=== PATIENT | male | born 1950 | race Caucasian/White ===

== ENCOUNTER 2016-10-28 17:55 | Inpatient (IN) | payer MEDICARE ==
--- NOTE | ~2016-10-28 | OP ---
Record Of Operation [facility] [address] [place]. [address] NAME: LUPILLO JIM : 52 STATUS : ADM IN [facility]#: [id number] AGE: 66 ADM/REG DATE : 10/28/16 MR#: [id number] REPORT SERV DATE: 11/02/16 DICTATED BY: HUSSANI CARDOZO DATE: 11/02/16 REPORT STATUS : Draft TRANSCRIBED BY: MODMartinez DATE: 11/02/16 DATE OF PROCEDURE: 11/02/2016 PROCEDURE PERFORMED: Endotracheal intubation. INDICATIONS: Acute hypoxic respiratory failure. DESCRIPTION OF PROCEDURE: After informed consent was obtained from the patient's at bedside, procedure was performed emergently at the patient's bedside on the floor. He was premedicated with 100 mg of propofol and 100 mg of succinylcholine, and using a laryngoscope, the vocal cords were visualized very well. A 7.5 endotracheal tube was introduced under direct vision. Tip was placed at 24 cm, and placement was confirmed by auscultation bilaterally and end-tidal CO2. The patient tolerated the procedure well. His saturations returned to the 94% to 96% post procedure. The patient will be placed on mechanical ventilation. A postprocedure chest x-ray will be obtained as well. /MARTITA Hussain Cardozo M.D. / [id number] CC: Trina Mckeon MD
--- NOTE | ~2016-10-28 | CN ---
Consultation Report [facility] [address] [place]. [address] NAME: LUPILLO JIM : 52 STATUS : ADM IN PAT#: [id number] AGE: 66 ADM/REG DATE : 10/28/16 MR#: [id number] REPORT SERV DATE: 10/30/16 DICTATED BY: DATE: REPORT STATUS : Draft TRANSCRIBED BY: MODL DATE: 10/29/16 NEUROLOGY CONSULTATION DATE OF CONSULTATION: 10/29/2016 REASON FOR CONSULT: Stroke. HISTORY OF PRESENT ILLNESS: This is a 66-year-old male, who presented to [facility] on 10/28/2016 as a transfer from [facility] secondary to stroke as well as internal carotid artery occlusion and cortical stenosis in the left ICA. The patient was noted to have duration of left-sided weakness as well as difficulty ambulating with the patient reports weakness is better. The patient otherwise was also noted to have severe dysphagia with the patient coughing with basically swallow. Also, the patient's family reports that the patient has had a supposedly modified barium swallow study at outside hospital that demonstrated the patient is able to tolerate pureed diet. The patient denies aspirin therapy at home and denies any other recent illness prior to the hospitalization. No recent history of dysphagia was otherwise noted. Also, the patient was noted to have stable symptoms since the hospitalization. At the time of my evaluation, patient's past medical history is significant for hypercholesterolemia, hypertension, COPD, psoriasis, hypothyroidism, history of throat cancer, and previous alcohol usage. The patient since the stroke was noted to have dysphagia, reportedly he was noted to have a modified barium swallow study at the outside hospital, but was noted to have severe coughing spells with attempts all to p.o. diet and swallowing at the hospital evaluation. HOME MEDICATIONS: Consist of levothyroxine, lisinopril, omeprazole as well as vitamin B12. In addition, the patient during the current hospital stay, was started on Lipitor 20 mg p.o. at bedtime as well as Plavix and heparin drip. SOCIAL HISTORY: The patient does have previous history of tobacco usage, quit 30 years ago. Previous alcohol usage, he quit 4 years ago. Denies illicit drug usage. FAMILY HISTORY: Significant for hypertension, cancer, myocardial infarction, stroke as well as lung cancer. REVIEW OF SYSTEMS: Negative except for those mentioned in the HPI. PHYSICAL EXAMINATION: VITAL SIGNS: Overnight, the patient was noted to have vital signs with T-max of 99.1, heart rate of 58 to 120, respirations of 18, and blood pressure of 136 to 177 over 58 to 81. GENERAL: The patient is well developed, well nourished, and in no acute distress. CARDIOVASCULAR: Regular rate and rhythm. No carotid bruits were otherwise auscultated. PULMONARY: On evaluation, the patient's pulmonary examination was clear to auscultation Consultation Report [place] [id number] [facility] [place]. [address] NAME: LUPILLO JIM : 52 STATUS : ADM IN [facility]#: [id number] AGE: 66 ADM/REG DATE : 10/28/16 MR#: [id number] REPORT SERV DATE: 10/30/16 DICTATED BY: DATE: REPORT STATUS : Draft TRANSCRIBED BY: MARTITA DATE: 10/29/16 bilaterally. Although the patient was noted to have severe coughing spells with attempted p.o. intake and swallowing. NEUROLOGICAL: The patient is alert and oriented to person, place, year, and month. Follows simple and 2-step commands. Intact attention span. Noted to have intact registration, mild difficulties with recall. Mild dysarthria was noted. No aphasia was appreciated. Cranial nerves 2 through 12, pupils equal, round, and reactive to light. Horizontal eye movement. The patient was noted to have mild restricted left worse eye movement, but otherwise intact horizontal eye movement to the right with the patient noted to have intact vertical eye movement. Intact blink to threat response bilaterally. The patient was noted to have intact sensation bilaterally. Denies sensory changes. Decreased nasolabial fold on the left with the left lower face weakness was noted. Tongue deviated to the right at time of evaluation. The patient demonstrated weakness in the left upper extremity as well as rigidity with the patient also noted to have 4/5 weakness in the left lower extremity. 5/5 right upper extremity, 5/5 right lower extremity strength at the time of evaluation. Reports symmetrical sensation bilaterally. Deep tendon reflex was 3+ in the left lower extremity and 3+ in the left upper extremity, 2+ in the right upper and right lower extremity at time of evaluation. Normal qafuna-ef-lgej examination without ataxia. The patient reports difficulty with gait as a result, gait evaluation was not performed. LABORATORY STUDIES: Demonstrated white blood cell count of 5.8, hemoglobin of 11.9, hematocrit of 35.5, platelet count of 234. Chemistry panel: Sodium 139, potassium 3.9, chloride 105, bicarb of 23, BUN of 15, creatinine 1.07, glucose of 100, calcium of 9.1, magnesium of 1.7. Cholesterol of 159, HDL of 40, LDL of 106, triglyceride of 69. The patient was noted to have serum troponin of less than 0.02 and TSH of 1.19. Hemoglobin A1c of 5.6. No neuro imaging was available at the time of the evaluation from our hospitalization; however, the patient was noted to have imaging study from outside hospital, in our PAC system that was reviewed. MRI study demonstrates subcortical periventricular white matter stroke that appear to be embolic in the right MCA distribution. No hemorrhage was otherwise noted. The patient's CT scan of the brain performed at outside hospital was also reviewed and no hemorrhage was seen. IMPRESSION: Cerebrovascular accident with the right internal carotid artery complete occlusion and the left internal carotid artery with 90% stenosis with the patient noted to have severe coughing with the swallowing. We will recommend speech therapy to re-evaluate with modified barium swallow study. We will keep the patient n.p.o. until modified barium swallow study. The patient is to be kept n.p.o. Once the patient is able to tolerate p.o., we will advance aspirin as well as Plavix, and will have the patient started on atorvastatin 80 mg p.o. at bedtime. Meanwhile we are recommending PT/OT to evaluate and treat the patient. RECOMMENDATION: 1. Aspirin and Plavix when the patient passed the swallow study. 2. Speech therapy for modified barium swallow study. 3. PT/OT. 4. Once the patient is able to tolerate p.o., we will change Lipitor to 80 mg p.o. at Consultation Report [place] [address] [place]. [address] NAME: LUPILLO JIM : 52 STATUS : ADM IN [facility]#: [id number] AGE: 66 ADM/REG DATE : 10/28/16 MR#: [id number] REPORT SERV DATE: 10/30/16 DICTATED BY: DATE: REPORT STATUS : Draft TRANSCRIBED BY: MODL DATE: 10/29/16 bedtime. [facility]/MARTITA Jairo Berumen MD / [id number] CC: Trina Mckeon MD
--- NOTE | ~2016-10-28 | DS ---
Discharge Summary [facility] [address] [place]. 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 Elsa Frey left off. Dr. Frey dictated the hospital course through 11/07/2016. On 11/07/2016, there had been no events during the night. The patient was still intubated. Echocardiogram had shown ejection fraction of 50% to 55%. He has mild diastolic dysfunction. The following day, the patient did not tolerate weaning trials. Chest x-ray was stable. Heparin had been stopped. Plavix and aspirin were continued. The patient did have some left hand and foot weakness, probably related to CVA. Heparin had been stopped due to hemoptysis. Aspirin and Plavix were going to be continued. On 11/09/2016, he had not done well with weaning trials. He had had a CT scan of the chest without contrast performed. He remained critically ill. It was felt that he would need an ENT consult for trachea evaluation. On the , he remained on the ventilator. He was seen by Dr. Michael Sherman regarding tracheostomy. The patient had been transferred from [facility] secondary to right hemorrhagic stroke as well as right complete carotid stenosis and left internal carotid artery stenosis as well as right calf vertebral occlusion despite multiple attempts to wean from the ventilator, which had failed. He had been asked to see the patient regarding tracheostomy for long-term ventilator management. The patient has a very high risk for general anesthesia for tracheostomy given his current vascular findings. This would be discussed with the medical team taking care of him and also with his power of finance attorney and family before considering tracheostomy given the high risk. Daily vent weaning trials would be continued. Dr. Sherman was not comfortable with trach under general anesthesia until left carotid stenosis had been addressed. The patient was alert, supportive care continued. On 11/14/2016, the patient had been extubated. He was sitting up in bed. He was not able to verbally speak, but could respond with a nod. He was evaluated by Occupational and Physical Therapy. Tube feedings were at goal. The patient does have Enterobacter pneumonia. He could follow verbal commands. He was not a vascular surgery candidate at this time. Discharge planning was performed. Nebulizer treatments were provided. On the , he was moved back to the CCU with fever and tachycardia. Full cultures were going to be obtained. He was placed on Vapotherm. TSH was going to be checked. Synthroid was continued. The patient had a hypoxic episode. Chest x-ray showed pulmonary venous hypertension. On the , the patient was speaking. He said his pain level was 5/10. Discharge planning continued. Vancomycin continued. He was evaluated by Physical Therapy. On 11/25/2016, blood cultures were negative. Tube feedings were continued. The next day, he was resting comfortably. His affect was flat. Chest x-ray showed improvement. Magnesium citrate was given for constipation. The patient does have a 90% left internal carotid artery stenosis. Plavix, statin, and aspirin were continued. On 11/27/2016, he did have a cough. He denied any pain or shortness of breath. He did have a small bowel movement. Blood cultures remained negative. Discharge instructions were given. Due to his improved and stable condition, he was discharged to [facility] with the above-stated instructions. Information collected by: Sunshine Curtis Discharge Summary [address] [address] NAME: LUPILLO JIM : 52 STATUS : DIS IN PAT#: [id number] AGE: 66 ADM/REG DATE : 10/28/16 MR#: [id number] REPORT SERV DATE: 12/12/16 DICTATED BY: SEBASTIÁN VIZCARRA DATE: 12/11/16 REPORT STATUS : Draft TRANSCRIBED BY: MARTITA DATE: 12/11/16 I submit the above information as my discharge summary. WANG/MARTITA Sebastián Vizcarra M.D. / [id number] CC: Trina Mckeon MD Jack Greer, M.D. [facility]
--- NOTE | ~2016-10-28 | IDS ---
Interim Discharge Summary [facility] [address] [place]. [address] NAME: LUPILLO JIM : 52 STATUS : ADM IN [facility]#: [id number] AGE: 66 ADM/REG DATE : 10/28/16 MR#: [id number] REPORT SERV DATE: 11/07/16 DICTATED BY: STEPHANIE FREY DATE: 11/07/16 REPORT STATUS : Draft TRANSCRIBED BY: MODMartinez DATE: 11/07/16 ADMISSION DATE: 10/28/2016 DISCHARGE DATE: Date of transfer to the intensive care unit is 11/02/2016. This is a 66-year-old patient, who was initially admitted to [facility] in [place] after he presented there with facial droop, left arm weakness, and left leg weakness. The patient was evaluated there and was found to have mild brain atrophy and mild hypodense periventricular white matter disease, otherwise a CT scan of the head was unremarkable. The patient then went on to have a MRI of the brain on the 27 of October which showed multiple acute infarcts involving the periventricular white matter on the right side and additional scattered focal infarct involving the cortex mostly the parietal lobe. He also had an MR angiography that showed right internal carotid artery, total occlusion of the right internal carotid artery and 90% stenosis or greater involving the right the left internal carotid artery with right vertebral artery also include occluded. Because of these findings, Dr. Sebastián Vizcarra was asked to accept the patient in transfer for further evaluation and possible stenting of the carotids. The patient was then transferred to this facility on the 28 of October and was seen by the Hospitalist Service. The plan was to have taken the patient for stenting of the carotids on the 03 of November, however on the 02 of November, the patient got into respiratory distress on the floor, possibly aspirated, became hypoxic, and then was intubated and subsequently transferred to the medical intensive care unit requiring mechanical ventilation. Since that time, the patient on grew out Enterobacter cloacae and by antibiotics were changed to cefepime. The patient remains intubated has had a difficult time weaning secondary to copious secretions and so currently he remains a full code and he is on heparin as per recommendations of Vascular Surgery and Plavix and aspirin as per Neurology. He is hemodynamically stable. In reviewing the records from [facility], the patient apparently has had difficulty with dysphasia for quite some time before his admission to [facility] and has a history of throat cancer and is status post chemo radiation in 2012. In fact, the patient has previously had a PEG tube and currently has a PEG tube that I believe was placed at [facility]. The patient is on tube feedings and is tolerating those well. The patient has a history of hypothyroidism and is on Synthroid with a TSH that is within normal limits. The patient has a remote history of smoking and carries a diagnosis of COPD and currently he is on bronchodilator protocol. As far as decision making is concerned, I believe it is the patient's niece that is the closest relative, there is an ex- that comes to see him every day and in fact, takes care of him at home. I have spoken to her on several occasions and apparently the patient is seen at the outpatient [facility] and there is some history he has had of some lung issues a few years ago, possibly related to a viral illness but further Interim Discharge Summary [address] [place]. [address] NAME: LUPILLO JIM : 52 STATUS : ADM IN PAT#: [id number] AGE: 66 ADM/REG DATE : 10/28/16 MR#: [id number] REPORT SERV DATE: 11/07/16 DICTATED BY: STEPHANIE FREY DATE: 11/07/16 REPORT STATUS : Draft TRANSCRIBED BY: MARTITA DATE: 11/07/16 details of that are unknown at this time and we have requested records from the [place]. I am considering possibly doing a high-resolution CT scan or just a plain CT scan of the chest without contrast to further evaluate his lungs and see if there is any other reason that the patient is not weaning from the ventilator. The patient had an echocardiogram done here since I could not find any records of one being done at [facility]. Ejection fraction was about 50 to 55% with mild diastolic dysfunction, normal RV and systolic function and no valvular disease. Normal pulmonary pressures. Other previous medical history is one of hypertension, hyperlipidemia, psoriasis, rosacea, there is a previous history of alcohol abuse. The patient is on B12, bronchodilator protocol, and Lipitor. He remains hemodynamically stable. The plan will be to continue efforts at weaning and possibly extubating the patient and then once he has stabilized, he can be re-evaluated by Dr. Vizcarra for any further intervention regarding his carotid artery stenosis. /MODL Stephanie Frey M.D. / [id number] CC: Trina Mckeon MD
--- NOTE | ~2016-10-28 | CN ---
Consultation Report [facility] [address] [place]. [address] NAME: LUPILLO JIM : 52 STATUS : ADM IN [facility]#: [id number] AGE: 66 ADM/REG DATE : 10/28/16 MR#: [id number] REPORT SERV DATE: 10/29/16 DICTATED BY: SARA MACHADO DATE: 10/28/16 REPORT STATUS : Draft TRANSCRIBED BY: MODL DATE: 10/28/16 CONSULTATION DATE OF CONSULTATION: 10/28/2016 REASON FOR CONSULTATION: Consulted for CVA. IDENTIFYING DATA: 1. PCP, the patient receives primary care at the [facility] in [place]. 2. Previous oncologist Dr. Tan. HISTORY OF PRESENT ILLNESS: This is a pleasant 66-year-old, male, with a history of hypertension, COPD, high cholesterol, previous throat cancer status post radiation and chemotherapy, hypothyroidism, dysphagia, and GERD who presents to us after being transferred from a previous facility noted as [facility]. He presented to their facility with a chief complaint of left-sided weakness and unsteady gait. He says he had been unable to walk since 9 o'clock in the morning, and he had weakness for a few day specifically for the past few weeks. He states he has had left arm weakness and left leg weakness to the point where he could not walk. He denied any kind of cervical, neck, or lumbar back problems. He also stated that he had a hard time eating, that he felt like he had an increased problem with dysphagia but he states he did have some dysphagia at baseline after having chemo and radiation status post throat cancer in 2011. He is transferred to our facility here at [facility] and admitted per Dr. Sebastián Vizcarra with CVA and carotid artery stenosis. We are consulted to help in medical management while the patient is inpatient. The patient states he has not had a stroke in the past. He quit smoking 30 years ago. He does not have history of any SC or sleep apnea. Upon presentation to their facility, he denies that he had any headache, vertigo, hearing changes, visual changes, bladder or bowel changes, seizures, any kind of syncope. He denies any infectious symptoms of fever, chest pain, shortness of breath, or any abdominal pain. The patient's history was obtained through careful interview with the patient and his coupled with review of senior environmental consultant notes and old medical records noted from [facility]. PAST MEDICAL HISTORY: 1. High cholesterol. 2. Hypertension. 3. COPD. 4. Psoriasis. 5. Hypothyroidism. 6. PTSD. 7. Throat cancer. 8. Rosacea. 9. Previous alcohol abuse. 10.Acute constipation. Consultation Report [facility] [id number] [place]. [address] NAME: LUPILLO JIM : 52 STATUS : ADM IN [facility]#: [id number] AGE: 66 ADM/REG DATE : 10/28/16 MR#: [id number] REPORT SERV DATE: 10/29/16 DICTATED BY: SARA MACHADO DATE: 10/28/16 REPORT STATUS : Draft TRANSCRIBED BY: MARTITA DATE: 10/28/16 11.Dysphagia. 12.GERD. HOME MEDICATION: 1. Levothyroxine 0.1 mg p.o. daily. 2. Lisinopril 40 mg p.o. daily. 3. Omeprazole 20 mg of oral delayed release capsules 2 caps p.o. daily. 4. Cyanocobalamin 500 mcg tablet 1000 mcg p.o. daily. ALLERGIES: ARE TO HYDROCHLOROTHIAZIDE AND MORPHINE. SOCIAL HISTORY: The patient is . He is remarried for 5 years and was from his present and originally in 1985. He lives in a single-level home. Previous smoker but quit greater than 30 years ago. Previous alcohol use, he quit 4 years ago. He has no children. FAMILY HISTORY: 1. Family is positive for cancer and hypertension. 2. Mother had hypertension, SC, and a CVA. 3. Father had cancer, hypertension, and an SC. 4. One sister had lung cancer and is , had a total of 3 sisters. Others alive and well. 5. He has one brother. SURGICAL HISTORY: 1. Tonsillectomy as a child. 2. Left chest Port-A-Cath. 3. Throat cancer with chemo and radiation in 2011. 4. PEG 2012 with removal in 2012. 5. The patient relates right lung collapsed approximately 30 years ago. 6. Colonoscopy previously is scheduled for next week in [place]. REVIEW OF SYSTEMS: Negative other than what is in HPI. The patient complains of no shortness of breath. No nausea, vomiting. No chest pain. No fever. No diarrhea. He has no agitation. He is alert and oriented. He does display weakness of the left arm and leg and slight facial droop. Speech is otherwise clear. PHYSICAL EXAMINATION: VITAL SIGNS: From today; blood pressure 99/58, respiratory rate 16, temperature 97.9, heart rate 70, O2 saturation 95% on room air. GENERAL: This is a 66-year-old, male, who is resting in bed in no acute distress. NEURO: His head is atraumatic. He is normocephalic. He is alert and oriented x3. His mood is pleasant and appropriate. He does display weakness of the left arm and leg and specifically, he says in his left fingers. He displays slight facial droop. Speech is Consultation Report [facility] [id number] [facility] [place]. [address] NAME: LUPILLO JIM : 52 STATUS : ADM IN [facility]#: [id number] AGE: 66 ADM/REG DATE : 10/28/16 MR#: [id number] REPORT SERV DATE: 10/29/16 DICTATED BY: SARA MACHADO DATE: 10/28/16 REPORT STATUS : Draft TRANSCRIBED BY: MARTITA DATE: 10/28/16 otherwise clear. NECK: Supple. Trachea is midline. No JVD noted. No obvious thyromegaly or lymphadenopathy. EENT: His sclerae are nonicteric. His pupils are equal and reactive to light. His nares are patent. His mucous membranes are moist. His tongue is midline. He is able to stick it out appropriately to command. His soft palate rises with phonation. He does not display any nystagmus. CHEST: No pain with palpation. LUNGS: Clear to auscultation bilaterally. He has normal respiratory effort. No increased work of breathing with conversation. CARDIOVASCULAR: S1, S2. No obvious murmurs, rubs, or gallops. He is on telemetry and displays a sinus rhythm with a rate of 78. ABDOMEN: Soft, nontender, with bowel sounds active. No palpable organomegaly. Last bowel movement was 10/28/2016. EXTREMITIES: No edema. Normal distal pulses. No calf tenderness. SKIN: Warm and dry. No unusual rashes or skin lesions. Normal color turgor. PSYCH: The patient is pleasant and cooperative. He states he is tired but his mood is appropriate. LABORATORY DATA: Actually from 10/28/2016 at [facility]; sodium 137, potassium 4.0, chloride 104, BUN 16, creatinine 1.11, GFR 69, glucose 86, calcium 9.2, magnesium 1.7. Phosphorus 3.3, ALT 10, AST 17, total bilirubin 0.8, white blood cell 5.9, hemoglobin 12.0, hematocrit 36.2, platelets are 210. He had MRI of the brain on 10/27/2016 which displayed a subacute right hemispheric infarct. He also had MRA of the head and neck on 10/27/2016 that displayed occluded right ICA 90%, left ICA, and an occluded right vertebral artery. ASSESSMENT AND PLAN: 1. This gentleman is transferred from [facility] with a right hemorrhagic ischemic CVA with occluded right ICA, we are aware. He will be seen by Neurology in the morning. He is admitted per Dr. Vizcarra. He will be n.p.o. for a.m. testing for problems with dysphagia to initiate speech evaluation. Dr. Vizcarra has placed him on a heparin drip, and he is on Plavix daily. The patient is to have a bilateral carotid ultrasound in the a.m. We will have Neuro checks q.2 hours x4, then q.4 hours. He will be on fall precautions. He will be placed on telemetry. We will obtain an EKG. 2. Hypertension. We are aware. He is normally on lisinopril at home which will be on hold. His blood pressure presently is only 99/58. Because of the CVA, he will be on permissive hypertension, and we will not initiate antihypertensives at this time. 3. Dysphagia. This patient does have a history of throat cancer with radiation and chemotherapy in the past. Aware. He will remain n.p.o. for now. He was previously seen by [facility], [place], and he will need to be re-evaluated post a.m. testing by Speech and for swallowing. His states that he has been on a diet with thickened liquids at the previous facility. 4. Hypothyroidism. Aware. The patient is normally on Synthroid at home. We will Consultation Report [facility] [address] [facility] [address] NAME: LUPILLO JIM : 52 STATUS : ADM IN [facility]#: [id number] AGE: 66 ADM/REG DATE : 10/28/16 MR#: [id number] REPORT SERV DATE: 10/29/16 DICTATED BY: SARA MACHADO DATE: 10/28/16 REPORT STATUS : Draft TRANSCRIBED BY: MARTITA DATE: 10/28/16 continue Synthroid here but he may need an IV dose if he remains n.p.o., that is to be evaluated. We will check a TSH in the morning. 5. Chronic obstructive pulmonary disease. Aware. The patient was a previous smoker, 30 years ago, now quit. He is not on any medications at home. No O2 at home. We will have O2 p.r.n. if needed to keep the sats 92% or greater. 6. Gastroesophageal reflux disease. Aware. The patient is on omeprazole p.o. daily at home. We will place him on Protonix 40 mg IV daily since he has been held n.p.o. 7. Hypercholesterolemia. Aware. He states he has been on cholesterol medicine at home, and he does not know what that is. He was placed on Lipitor daily at [facility], and we will continue that as daily pending his n.p.o. status. The hospitalist group would like to thank you for this consultation. We will continue to follow with you and the patient and please let us know if we can be of any further assistance. MAYNOR Sara Machado NP / [id number] CC: Sebastián Vizcarra M.D.
--- NOTE | ~2016-10-28 | CN ---
Consultation Report [address]. [address] NAME: LUPILLO EDWARDS : 52 STATUS : ADM IN PAT#: [id number] AGE: 66 ADM/REG DATE : 10/28/16 MR#: [id number] REPORT SERV DATE: 11/12/16 DICTATED BY: VARGHESE STARKS DATE: 11/11/16 REPORT STATUS : Draft TRANSCRIBED BY: MODL DATE: 11/11/16 CONSULTATION DATE OF CONSULTATION: 11/11/2016 REASON FOR CONSULTATION: Tracheostomy. HISTORY OF PRESENT ILLNESS: Mr. Edwards is a 66-year-old gentleman admitted on 10/28/2016 transferred from [facility] secondary to right hemorrhagic stroke as well as right complete carotid stenosis and left internal carotid artery stenosis as well as right calf vertebral occlusion despite multiple attempts to wean from ventilator, which had failed. I had been called to see the patient regarding tracheostomy for long-term ventilator management. There was no family to discuss his case with them at the present time. PAST MEDICAL HISTORY: Hypercholesterolemia, hypertension, COPD, psoriasis, hypothyroidism, history of throat cancer, previous alcohol abuse. SOCIAL HISTORY: Tobacco use, quit 30 years ago. Previous alcohol use, quit four years ago. No illicit drug use. FAMILY HISTORY: Hypertension and cancer and myocardial infarction and stroke as well as lung cancer. PHYSICAL EXAMINATION: GENERAL: The patient was intubated and sedated. HEENT: Both ears are clear. Nose is clear. Oral cavity and oropharynx shows an endotracheal tube in place. NECK: Supple. No palpable masses. No thyromegaly. IMPRESSION: 1. Right cerebrovascular accident. 2. Left internal carotid of 90% stenosis. 3. Respiratory failure. 4. Dysphagia. RECOMMENDATIONS: The patient has very high risk for general anesthesia for tracheostomy given his current vascular findings. We will discuss with the team taking care of him and also with his Power of National Sales Manager and family before considering tracheostomy given its high risk. Thanks for allowing us to see the patient. Consultation Report [address] [place]. [address] NAME: LUPILLO EDWARDS : 52 STATUS : ADM IN PAT#: [id number] AGE: 66 ADM/REG DATE : 10/28/16 MR#: [id number] REPORT SERV DATE: 11/12/16 DICTATED BY: VARGHESE STARKS DATE: 11/11/16 REPORT STATUS : Draft TRANSCRIBED BY: DENNYL DATE: 11/11/16 GIL/MARTITA Varghese Starks M.D. / [id number] CC: Trina Mckeon MD
[~2016-10-28 17:55] MED LIST: CAT1 PO; DORYX150 MG PO; HYDROCHLOROT12.5 MG PO; PRIN20 PO; ZOCOR20 PO
[2016-10-28] MEDS ORDERED: LISINOPRIL40 MG PO (18:52)
[2016-10-28] MEDS ORDERED: PRILO PO (18:52)
[2016-10-28] MEDS ORDERED: B12250T PO (18:53)
[2016-10-28] MEDS ORDERED: LEVOTHYROXIN100 MCG PO (18:54)
[2016-10-28] MEDS ORDERED: T PO (19:39)
[2016-10-28] MEDS ORDERED: ASAB PO (19:40)
[2016-10-28] MEDS ORDERED: LIPITOR20 PO (19:40)
[2016-10-28] MEDS ORDERED: PLAVIX PO (19:41)
[2016-10-28] MEDS ORDERED: CYANO1000T PO (19:42)
[2016-10-28] MEDS ORDERED: LOVENOX SC (19:50)
[2016-10-28] MEDS ORDERED: PROTONIXIV IV (19:53)
[2016-10-28 21:44] LABS: INTERNATIONAL NORMAL RATI 1.1 UNITS (-); PROTIME (NOT ORD) 14.2 SEC (12.0-14.5)
[2016-10-29 05:45] LABS: BASOPHILS 0.3 %; BASOPHILS ABSOLUTE 0.02 10/3/uL (0.0-0.16); EOSINOPHILS 5.9 %; EOSINOPHILS ABSOLUTE 0.34 10/3/uL (0.0-0.53); IMMATURE GRANULOCYTES 0.2 %; IMMATURE GRANULOCYTES ABSOLUTE 0.01 10/3/uL (0.0-0.11); LYMPHOCYTES 25.6 %; LYMPHOCYTES ABSOLUTE 1.48 10/3/uL (0.67-4.30); MEAN CORPUS HGB CONC 33.5 g/dL (32.0-36.0); MEAN CORPUSCULAR HEMOGLOB 30.1 pg (26.0-34.0); MEAN PLATELET VOLUME 9.7 fL (9.2-13.0); MONOCYTES 11.4 %; MONOCYTES ABSOLUTE 0.66 10/3/uL (0.21-1.20); NEUTROPHILS 56.6 %; NEUTROPHILS ABSOLUTE 3.28 10/3/uL (2.02-8.40); PLATELET COUNT 234 10/3/uL (150-400); RBC DISTRIBUTION WIDTH 12.8 % (12.0-16.0); RED CELL COUNT 3.96 10/6/uL (4.7-6.1); WHITE BLOOD CELLS 5.8 10/3/uL (4.5-10.5)
[2016-10-29 05:46] LABS: INTERNATIONAL NORMAL RATI 1.1 UNITS (-); PROTIME (NOT ORD) 14.4 SEC (12.0-14.5)
[2016-10-29 05:49] LABS: HEMATOCRIT 35.5 % (40.0-51.0); HEMOGLOBIN 11.9 g/dL (13.6-17.8); MANUAL DIFF NO %; MEAN CORPUSCULAR VOLUME 89.6 fL (80-100)
[2016-10-29 06:05] LABS: A/G RATIO 1.1 (0.7-1.9); ALBUMIN 3.8 G/DL (3.5-5.0); ALKALINE PHOSPHATASE 50 U/L (45-117); BUN (BLOOD UREA NITROGEN) 15 MG/DL (6-23); CALCIUM, SERUM 9.1 MG/DL (8.5-10.4); CHLORIDE, SERUM 105 MMOL/L (96-112); CHOLESTEROL 159 MG/DL (< 200); CO2 (CARBON DIOXIDE) 23 MMOL/L (24-34); CREATININE 1.07 MG/DL (0.70-1.30); GFR AFRICAN AMERICAN 84 ML/MIN (>=60); GFR NON AFRICAN AMERICAN 72 ML/MIN (>=60); GLOBULIN 3.4 G/DL (2.5-4.1); GLUCOSE, SERUM 100 MG/DL (60-99); HDL CHOLESTEROL 40 MG/DL (> 39); LDL CHOLESTEROL 106 MG/DL (< 130); NON-HDL CHOLESTEROL 119 MG/DL (< 160); POTASSIUM, SERUM 3.9 MMOL/L (3.5-5.3); SGOT(AST) 17 U/L (5-40); SGPT(ALT) 18 U/L (5-65); SODIUM, SERUM 139 MMOL/L (135-148); TOTAL BILIRUBIN 0.7 MG/DL (0-1.2); TOTAL PROTEIN 7.2 G/DL (6.0-8.5); TRIGLYCERIDE 69 MG/DL (< 150); TROPONIN I <0.02 NG/ML (<0.05)
[2016-10-30 06:47] LABS: BASOPHILS 0.5 %; BASOPHILS ABSOLUTE 0.03 10/3/uL (0.0-0.16); EOSINOPHILS 6.1 %; EOSINOPHILS ABSOLUTE 0.37 10/3/uL (0.0-0.53); HEMOGLOBIN 12.1 g/dL (13.6-17.8); IMMATURE GRANULOCYTES 0.2 %; IMMATURE GRANULOCYTES ABSOLUTE 0.01 10/3/uL (0.0-0.11); LYMPHOCYTES 23.5 %; LYMPHOCYTES ABSOLUTE 1.43 10/3/uL (0.67-4.30); MEAN CORPUS HGB CONC 33.6 g/dL (32.0-36.0); MEAN CORPUSCULAR HEMOGLOB 30.1 pg (26.0-34.0); MEAN CORPUSCULAR VOLUME 89.6 fL (80-100); MEAN PLATELET VOLUME 9.7 fL (9.2-13.0); MONOCYTES 9.2 %; MONOCYTES ABSOLUTE 0.56 10/3/uL (0.21-1.20); NEUTROPHILS 60.5 %; NEUTROPHILS ABSOLUTE 3.68 10/3/uL (2.02-8.40); PLATELET COUNT 223 10/3/uL (150-400); RBC DISTRIBUTION WIDTH 12.9 % (12.0-16.0); RED CELL COUNT 4.02 10/6/uL (4.7-6.1); WHITE BLOOD CELLS 6.1 10/3/uL (4.5-10.5)
[2016-10-30 06:55] LABS: MANUAL DIFF NO %
[2016-10-30 08:09] LABS: ALBUMIN 3.7 G/DL (3.5-5.0); ALKALINE PHOSPHATASE 51 U/L (45-117); BUN (BLOOD UREA NITROGEN) 12 MG/DL (6-23); CALCIUM, SERUM 8.8 MG/DL (8.5-10.4); CHLORIDE, SERUM 105 MMOL/L (96-112); CO2 (CARBON DIOXIDE) 22 MMOL/L (24-34); CREATININE 1.15 MG/DL (0.70-1.30); GFR AFRICAN AMERICAN 77 ML/MIN (>=60); GFR NON AFRICAN AMERICAN 66 ML/MIN (>=60); GLOBULIN 3.6 G/DL (2.5-4.1); PHOSPHORUS, SERUM 3.5 MG/DL (2.5-4.5); POTASSIUM, SERUM 3.8 MMOL/L (3.5-5.3); SGOT(AST) 17 U/L (5-40); SGPT(ALT) 20 U/L (5-65); SODIUM, SERUM 141 MMOL/L (135-148); TOTAL BILIRUBIN 0.4 MG/DL (0-1.2); TOTAL PROTEIN 7.3 G/DL (6.0-8.5); TROPONIN I <0.02 NG/ML (<0.05)
[2016-10-30 08:13] LABS: GLUCOSE, SERUM 125 MG/DL (60-99)
[2016-10-31 02:08] LABS: BASOPHILS 0.5 %; BASOPHILS ABSOLUTE 0.03 10/3/uL (0.0-0.16); EOSINOPHILS ABSOLUTE 0.33 10/3/uL (0.0-0.53); HEMATOCRIT 35.7 % (40.0-51.0); HEMOGLOBIN 11.9 g/dL (13.6-17.8); IMMATURE GRANULOCYTES 0.2 %; IMMATURE GRANULOCYTES ABSOLUTE 0.01 10/3/uL (0.0-0.11); LYMPHOCYTES 21.3 %; LYMPHOCYTES ABSOLUTE 1.18 10/3/uL (0.67-4.30); MEAN CORPUS HGB CONC 33.3 g/dL (32.0-36.0); MEAN CORPUSCULAR HEMOGLOB 29.6 pg (26.0-34.0); MEAN CORPUSCULAR VOLUME 88.8 fL (80-100); MEAN PLATELET VOLUME 9.6 fL (9.2-13.0); MONOCYTES 10.1 %; MONOCYTES ABSOLUTE 0.56 10/3/uL (0.21-1.20); NEUTROPHILS 61.9 %; NEUTROPHILS ABSOLUTE 3.42 10/3/uL (2.02-8.40); PLATELET COUNT 216 10/3/uL (150-400); RED CELL COUNT 4.02 10/6/uL (4.7-6.1); WHITE BLOOD CELLS 5.5 10/3/uL (4.5-10.5)
[2016-10-31 02:14] LABS: MANUAL DIFF NO %
[2016-10-31 02:26] LABS: A/G RATIO 1.1 (0.7-1.9); ALBUMIN 3.7 G/DL (3.5-5.0); ALKALINE PHOSPHATASE 54 U/L (45-117); BUN (BLOOD UREA NITROGEN) 10 MG/DL (6-23); CALCIUM, SERUM 8.8 MG/DL (8.5-10.4); CHLORIDE, SERUM 105 MMOL/L (96-112); CO2 (CARBON DIOXIDE) 23 MMOL/L (24-34); CREATININE 1.21 MG/DL (0.70-1.30); GFR AFRICAN AMERICAN 72 ML/MIN (>=60); GFR NON AFRICAN AMERICAN 62 ML/MIN (>=60); GLOBULIN 3.5 G/DL (2.5-4.1); GLUCOSE, SERUM 116 MG/DL (60-99); PHOSPHORUS, SERUM 3.7 MG/DL (2.5-4.5); POTASSIUM, SERUM 3.8 MMOL/L (3.5-5.3); SGOT(AST) 23 U/L (5-40); SGPT(ALT) 20 U/L (5-65); SODIUM, SERUM 141 MMOL/L (135-148); TOTAL BILIRUBIN 0.6 MG/DL (0-1.2); TOTAL PROTEIN 7.2 G/DL (6.0-8.5)
[2016-11-01 04:59] LABS: BASOPHILS 0.1 %; BASOPHILS ABSOLUTE 0.01 10/3/uL (0.0-0.16); EOSINOPHILS 0 %; HEMATOCRIT 35.4 % (40.0-51.0); HEMOGLOBIN 11.8 g/dL (13.6-17.8); IMMATURE GRANULOCYTES 0.1 %; IMMATURE GRANULOCYTES ABSOLUTE 0.01 10/3/uL (0.0-0.11); LYMPHOCYTES 14.1 %; LYMPHOCYTES ABSOLUTE 0.97 10/3/uL (0.67-4.30); MEAN CORPUS HGB CONC 33.3 g/dL (32.0-36.0); MEAN CORPUSCULAR HEMOGLOB 29.4 pg (26.0-34.0); MEAN CORPUSCULAR VOLUME 88.3 fL (80-100); MEAN PLATELET VOLUME 9.6 fL (9.2-13.0); MONOCYTES 3.6 %; MONOCYTES ABSOLUTE 0.25 10/3/uL (0.21-1.20); NEUTROPHILS 82.1 %; NEUTROPHILS ABSOLUTE 5.62 10/3/uL (2.02-8.40); PLATELET COUNT 233 10/3/uL (150-400); RBC DISTRIBUTION WIDTH 12.9 % (12.0-16.0); RED CELL COUNT 4.01 10/6/uL (4.7-6.1); WHITE BLOOD CELLS 6.9 10/3/uL (4.5-10.5)
[2016-11-01 05:03] LABS: MANUAL DIFF NO %
[2016-11-01 05:05] LABS: INTERNATIONAL NORMAL RATI 1.2 UNITS (-); PROTIME (NOT ORD) 14.6 SEC (12.0-14.5)
[2016-11-01 05:20] LABS: ALBUMIN 3.6 G/DL (3.5-5.0); CALCIUM, SERUM 9.2 MG/DL (8.5-10.4); CHLORIDE, SERUM 103 MMOL/L (96-112); CO2 (CARBON DIOXIDE) 22 MMOL/L (24-34); CREATININE 1.17 MG/DL (0.70-1.30); GFR AFRICAN AMERICAN 75 ML/MIN (>=60); GFR NON AFRICAN AMERICAN 65 ML/MIN (>=60); GLUCOSE, SERUM 118 MG/DL (60-99); PHOSPHORUS, SERUM 4.6 MG/DL (2.5-4.5); POTASSIUM, SERUM 4.2 MMOL/L (3.5-5.3); SODIUM, SERUM 139 MMOL/L (135-148)
[2016-11-01 05:21] LABS: BUN (BLOOD UREA NITROGEN) 15 MG/DL (6-23)
[2016-11-01 05:23] LABS: PARTIAL THROMBO TIME 85.5 SEC (22.5-37.2)
[2016-11-02 01:55] LABS: BE (BASE EXCESS) -1.7 MEQ/L (0 +/- 2.5); CARBOXYHEMOGLOBIN 0.5 % (0-3); HCO3 (ACTUAL BICARBONATE) 23.2 MEQ/L (23-27); INSTRUMENT SERIAL # 8083; PCO2 (CO2 TENSION) 40 MMHG (35-45); PO2 (O2 TENSION) 53 MMHG (79-93); pH 7.38 (7.37-7.43)
[2016-11-02 01:56] LABS: ALLENS TEST Pos; DEVICE NC; HEMOBLOGIN CONTENT 13.2 G/DL (14-18); METHEMOGLOBIN 0.2 % (0-3); O2 CONTENT 15.9 VOL% (18-24); SAMPLE Arterial
[2016-11-02 02:08] LABS: ALBUMIN 4.2 G/DL (3.5-5.0); CALCIUM, SERUM 9.2 MG/DL (8.5-10.4); CHLORIDE, SERUM 99 MMOL/L (96-112); CO2 (CARBON DIOXIDE) 25 MMOL/L (24-34); CREATININE 1.54 MG/DL (0.70-1.30); GFR AFRICAN AMERICAN 54 ML/MIN (>=60); GFR NON AFRICAN AMERICAN 47 ML/MIN (>=60); PHOSPHORUS, SERUM 3.9 MG/DL (2.5-4.5); POTASSIUM, SERUM 3.5 MMOL/L (3.5-5.3); SODIUM, SERUM 137 MMOL/L (135-148)
[2016-11-02 02:16] LABS: BUN (BLOOD UREA NITROGEN) 21 MG/DL (6-23); GLUCOSE, SERUM 156 MG/DL (60-99)
[2016-11-02 05:58] LABS: BE (BASE EXCESS) -1.5 MEQ/L (0 +/- 2.5); CARBOXYHEMOGLOBIN 0.4 % (0-3); HCO3 (ACTUAL BICARBONATE) 23.7 MEQ/L (23-27); HEMOBLOGIN CONTENT 13.4 G/DL (14-18); INSTRUMENT SERIAL # 8083; METHEMOGLOBIN 0.3 % (0-3); MODE CMV; O2 CONTENT 20.1 VOL% (18-24); OPERATOR ID 13415; PCO2 (CO2 TENSION) 41 MMHG (35-45); PO2 (O2 TENSION) 521 MMHG (79-93); SAMPLE Arterial; TIDAL VOLUME 500 ML; pH 7.38 (7.37-7.43)
[2016-11-02 06:17] LABS: BASOPHILS 0.1 %; BASOPHILS ABSOLUTE 0.01 10/3/uL (0.0-0.16); EOSINOPHILS 0.1 %; EOSINOPHILS ABSOLUTE 0.01 10/3/uL (0.0-0.53); HEMATOCRIT 38.1 % (40.0-51.0); HEMOGLOBIN 12.7 g/dL (13.6-17.8); IMMATURE GRANULOCYTES 0.2 %; IMMATURE GRANULOCYTES ABSOLUTE 0.02 10/3/uL (0.0-0.11); LYMPHOCYTES 3.3 %; LYMPHOCYTES ABSOLUTE 0.31 10/3/uL (0.67-4.30); MEAN CORPUS HGB CONC 33.3 g/dL (32.0-36.0); MEAN CORPUSCULAR VOLUME 90.1 fL (80-100); MEAN PLATELET VOLUME 9.5 fL (9.2-13.0); MONOCYTES 9.9 %; MONOCYTES ABSOLUTE 0.92 10/3/uL (0.21-1.20); NEUTROPHILS 86.4 %; PLATELET COUNT 262 10/3/uL (150-400); RBC DISTRIBUTION WIDTH 13.3 % (12.0-16.0); RED CELL COUNT 4.23 10/6/uL (4.7-6.1); WHITE BLOOD CELLS 9.3 10/3/uL (4.5-10.5)
[2016-11-02 06:20] LABS: ASCORBIC ACID (UR NOT ORDER) NEG (NEG); BILIRUBIN, URINE NEGATIVE (NEG); KETONE, URINE NEGATIVE (NEG); LEUKOCYTE ESTERASE(NOT OR NEG (NEG); WBC (NOT ORDERED) (RFLEX) < 1 (0-5)
[2016-11-02 06:21] LABS: MANUAL DIFF NO %
[2016-11-02 06:36] LABS: ALKALINE PHOSPHATASE 49 U/L (45-117); BUN (BLOOD UREA NITROGEN) 23 MG/DL (6-23); CALCIUM, SERUM 9.2 MG/DL (8.5-10.4); CHLORIDE, SERUM 100 MMOL/L (96-112); CO2 (CARBON DIOXIDE) 23 MMOL/L (24-34); CREATININE 1.87 MG/DL (0.70-1.30); GFR AFRICAN AMERICAN 43 ML/MIN (>=60); GFR NON AFRICAN AMERICAN 37 ML/MIN (>=60); GLOBULIN 3.9 G/DL (2.5-4.1); GLUCOSE, SERUM 157 MG/DL (60-99); PHOSPHORUS, SERUM 3.2 MG/DL (2.5-4.5); POTASSIUM, SERUM 3.6 MMOL/L (3.5-5.3); SGOT(AST) 20 U/L (5-40); SGPT(ALT) 23 U/L (5-65); SODIUM, SERUM 135 MMOL/L (135-148); TOTAL BILIRUBIN 0.9 MG/DL (0-1.2); TOTAL PROTEIN 7.9 G/DL (6.0-8.5)
[2016-11-02 07:11] LABS: PROCALCITONIN 4.01 ng/mL (<0.5)
[2016-11-03 05:04] LABS: HEMATOCRIT 29.7 % (40.0-51.0); HEMOGLOBIN 9.9 g/dL (13.6-17.8)
[2016-11-03 10:52] LABS: HEMATOCRIT 28.2 % (40.0-51.0); HEMOGLOBIN 9.5 g/dL (13.6-17.8); MEAN CORPUS HGB CONC 33.7 g/dL (32.0-36.0); MEAN CORPUSCULAR HEMOGLOB 30.4 pg (26.0-34.0); MEAN CORPUSCULAR VOLUME 90.1 fL (80-100); MEAN PLATELET VOLUME 9.4 fL (9.2-13.0); RBC DISTRIBUTION WIDTH 13.9 % (12.0-16.0); WHITE BLOOD CELLS 9.1 10/3/uL (4.5-10.5)
[2016-11-03 10:53] LABS: MANUAL DIFF YES %; PLATELET COUNT 163 10/3/uL (150-400); RED CELL COUNT 3.13 10/6/uL (4.7-6.1)
[2016-11-03 10:59] LABS: INTERNATIONAL NORMAL RATI 1.6 UNITS (-)
[2016-11-03 11:01] LABS: PARTIAL THROMBO TIME 96.4 SEC (22.5-37.2); PROTIME (NOT ORD) 18.6 SEC (12.0-14.5)
[2016-11-03 11:03] LABS: BUN (BLOOD UREA NITROGEN) 23 MG/DL (6-23); CALCIUM, SERUM 8.7 MG/DL (8.5-10.4); CHLORIDE, SERUM 102 MMOL/L (96-112); CO2 (CARBON DIOXIDE) 25 MMOL/L (24-34); CREATININE 1.72 MG/DL (0.70-1.30); GFR AFRICAN AMERICAN 47 ML/MIN (>=60); GFR NON AFRICAN AMERICAN 41 ML/MIN (>=60); GLUCOSE, SERUM 143 MG/DL (60-99); PHOSPHORUS, SERUM 2.5 MG/DL (2.5-4.5); POTASSIUM, SERUM 3.4 MMOL/L (3.5-5.3); SODIUM, SERUM 138 MMOL/L (135-148)
[2016-11-03 11:18] LABS: BAND NEUTROPHILS 1 %; EOSINOPHILS 3 %; EOSINOPHILS ABSOLUTE (CALC) 0.27 10/3/uL (0.0-0.53); LYMPHOCYTES 8 %; LYMPHOCYTES ABSOLUTE (CALC) 0.73 10/3/uL (0.67-4.30); MONOCYTES 8 %; MONOCYTES ABSOLUTE (CALC) 0.73 10/3/uL (0.21-1.20); NEUTROPHILS ABSOLUTE (CALC) 7.37 10/3/uL (2.02-8.40); PLATELET ESTIMATE ADQ (ADEQUATE); SEGMENTED NEUTROPHIL (0) 80 %; TOTAL NUCLEATED CELLS 100
[2016-11-03 11:19] LABS: RBC MORPHOLOGY ABN (NORMAL)
[2016-11-04 04:21] LABS: CARBOXYHEMOGLOBIN 0.5 % (0-3); HCO3 (ACTUAL BICARBONATE) 23.9 MEQ/L (23-27); HEMOBLOGIN CONTENT 8.6 G/DL (14-18); INSTRUMENT SERIAL # 8083; METHEMOGLOBIN 0.3 % (0-3); MODE CMV; O2 CONTENT 11.9 VOL% (18-24); PCO2 (CO2 TENSION) 31 MMHG (35-45); PO2 (O2 TENSION) 99 MMHG (79-93); SAMPLE Arterial; TIDAL VOLUME 600 ML
[2016-11-04 05:48] LABS: HEMATOCRIT 27.5 % (40.0-51.0); HEMOGLOBIN 9.1 g/dL (13.6-17.8); MANUAL DIFF YES %; MEAN CORPUS HGB CONC 33.1 g/dL (32.0-36.0); MEAN CORPUSCULAR VOLUME 90.8 fL (80-100); MEAN PLATELET VOLUME 9.9 fL (9.2-13.0); PLATELET COUNT 163 10/3/uL (150-400); RBC DISTRIBUTION WIDTH 14.1 % (12.0-16.0); RED CELL COUNT 3.03 10/6/uL (4.7-6.1); WHITE BLOOD CELLS 7.6 10/3/uL (4.5-10.5)
[2016-11-04 06:02] LABS: BUN (BLOOD UREA NITROGEN) 21 MG/DL (6-23); CALCIUM, SERUM 8.1 MG/DL (8.5-10.4); CHLORIDE, SERUM 105 MMOL/L (96-112); CO2 (CARBON DIOXIDE) 23 MMOL/L (24-34); CREATININE 1.42 MG/DL (0.70-1.30); GFR AFRICAN AMERICAN 60 ML/MIN (>=60); GFR NON AFRICAN AMERICAN 51 ML/MIN (>=60); GLUCOSE, SERUM 134 MG/DL (60-99); PHOSPHORUS, SERUM 2.6 MG/DL (2.5-4.5); POTASSIUM, SERUM 3.2 MMOL/L (3.5-5.3); SODIUM, SERUM 139 MMOL/L (135-148)
[2016-11-04 06:13] LABS: BAND NEUTROPHILS 13 %; BASOPHILS 1 %; BASOPHILS ABSOLUTE (CALC) 0.08 10/3/uL (0.0-0.16); EOSINOPHILS 6 %; EOSINOPHILS ABSOLUTE (CALC) 0.46 10/3/uL (0.0-0.53); IMMATURE GRANS ABSOLUTE (CALC) 0.08 10/3/uL (0.0-0.11); LYMPHOCYTES 18 %; LYMPHOCYTES ABSOLUTE (CALC) 1.37 10/3/uL (0.67-4.30); MONOCYTES 3 %; MONOCYTES ABSOLUTE (CALC) 0.23 10/3/uL (0.21-1.20); MYELOCYTES 1 %; PLATELET ESTIMATE ADQ (ADEQUATE); SEGMENTED NEUTROPHIL (0) 58 %; TOTAL NUCLEATED CELLS 100
[2016-11-04 06:14] LABS: POIKILOCYTOSIS 1+ (5-10/OIF) (0-5/OIF)
[2016-11-04 16:47] LABS: ALKALINE PHOSPHATASE 44 U/L (45-117); BUN (BLOOD UREA NITROGEN) 18 MG/DL (6-23); CHLORIDE, SERUM 106 MMOL/L (96-112); CO2 (CARBON DIOXIDE) 25 MMOL/L (24-34); CREATININE 1.35 MG/DL (0.70-1.30); GFR AFRICAN AMERICAN 63 ML/MIN (>=60); GFR NON AFRICAN AMERICAN 55 ML/MIN (>=60); GLUCOSE, SERUM 133 MG/DL (60-99); POTASSIUM, SERUM 3.5 MMOL/L (3.5-5.3); PREALBUMIN 8.8 MG/DL (17.0-43.0); SGOT(AST) 22 U/L (5-40); SGPT(ALT) 17 U/L (5-65); SODIUM, SERUM 141 MMOL/L (135-148); TOTAL BILIRUBIN 0.6 MG/DL (0-1.2)
[2016-11-04 16:48] LABS: A/G RATIO 0.6 (0.7-1.9); ALBUMIN 2.3 G/DL (3.5-5.0); GLOBULIN 3.7 G/DL (2.5-4.1)
[2016-11-05 03:53] LABS: BE (BASE EXCESS) 1.3 MEQ/L (0 +/- 2.5); CARBOXYHEMOGLOBIN 0.7 % (0-3); HCO3 (ACTUAL BICARBONATE) 24.6 MEQ/L (23-27); HEMOBLOGIN CONTENT 7.9 G/DL (14-18); INSTRUMENT SERIAL # 8083; METHEMOGLOBIN 0.3 % (0-3); MODE ECMO; O2 CONTENT 10.7 VOL% (18-24); PCO2 (CO2 TENSION) 34 MMHG (35-45); PO2 (O2 TENSION) 77 MMHG (79-93); SAMPLE Arterial; TIDAL VOLUME 600 ML; pH 7.48 (7.37-7.43)
[2016-11-05 05:14] LABS: BASOPHILS 0.3 %; BASOPHILS ABSOLUTE 0.02 10/3/uL (0.0-0.16); EOSINOPHILS 3.1 %; EOSINOPHILS ABSOLUTE 0.19 10/3/uL (0.0-0.53); HEMOGLOBIN 8.1 g/dL (13.6-17.8); IMMATURE GRANULOCYTES 0.8 %; IMMATURE GRANULOCYTES ABSOLUTE 0.05 10/3/uL (0.0-0.11); LYMPHOCYTES 13.8 %; LYMPHOCYTES ABSOLUTE 0.86 10/3/uL (0.67-4.30); MEAN CORPUS HGB CONC 32.8 g/dL (32.0-36.0); MEAN CORPUSCULAR HEMOGLOB 29.6 pg (26.0-34.0); MEAN CORPUSCULAR VOLUME 90.1 fL (80-100); MEAN PLATELET VOLUME 9.6 fL (9.2-13.0); MONOCYTES 9.3 %; MONOCYTES ABSOLUTE 0.58 10/3/uL (0.21-1.20); NEUTROPHILS 72.7 %; NEUTROPHILS ABSOLUTE 4.52 10/3/uL (2.02-8.40); PLATELET COUNT 188 10/3/uL (150-400); RBC DISTRIBUTION WIDTH 14.3 % (12.0-16.0); RED CELL COUNT 2.74 10/6/uL (4.7-6.1); WHITE BLOOD CELLS 6.2 10/3/uL (4.5-10.5)
[2016-11-05 05:20] LABS: HEMATOCRIT 24.7 % (40.0-51.0); MANUAL DIFF NO %
[2016-11-05 05:30] LABS: CALCIUM, SERUM 8.4 MG/DL (8.5-10.4); CHLORIDE, SERUM 103 MMOL/L (96-112); CO2 (CARBON DIOXIDE) 26 MMOL/L (24-34); GFR AFRICAN AMERICAN 81 ML/MIN (>=60); GFR NON AFRICAN AMERICAN 70 ML/MIN (>=60); GLUCOSE, SERUM 149 MG/DL (60-99); PHOSPHORUS, SERUM 3.3 MG/DL (2.5-4.5); POTASSIUM, SERUM 3.3 MMOL/L (3.5-5.3); SODIUM, SERUM 141 MMOL/L (135-148)
[2016-11-05 05:35] LABS: BUN (BLOOD UREA NITROGEN) 14 MG/DL (6-23)
[2016-11-06 04:32] LABS: ALLENS TEST Pos; BE (BASE EXCESS) 3.5 MEQ/L (0 +/- 2.5); CARBOXYHEMOGLOBIN 0.2 % (0-3); HCO3 (ACTUAL BICARBONATE) 26.5 MEQ/L (23-27); HEMOBLOGIN CONTENT 9.6 G/DL (14-18); INSTRUMENT SERIAL # 8083; METHEMOGLOBIN 0.2 % (0-3); MODE CMV; OPERATOR ID 33214; PCO2 (CO2 TENSION) 34 MMHG (35-45); PO2 (O2 TENSION) 79 MMHG (79-93); SAMPLE Arterial; TIDAL VOLUME 600 ML; pH 7.51 (7.37-7.43)
[2016-11-06 06:48] LABS: ALBUMIN 2.5 G/DL (3.5-5.0); BUN (BLOOD UREA NITROGEN) 16 MG/DL (6-23); CALCIUM, SERUM 8.7 MG/DL (8.5-10.4); CHLORIDE, SERUM 101 MMOL/L (96-112); CO2 (CARBON DIOXIDE) 28 MMOL/L (24-34); CREATININE 1.06 MG/DL (0.70-1.30); GFR AFRICAN AMERICAN 85 ML/MIN (>=60); GFR NON AFRICAN AMERICAN 73 ML/MIN (>=60); GLUCOSE, SERUM 144 MG/DL (60-99); PHOSPHORUS, SERUM 3.4 MG/DL (2.5-4.5); POTASSIUM, SERUM 3.2 MMOL/L (3.5-5.3); SODIUM, SERUM 139 MMOL/L (135-148)
[2016-11-06 06:53] LABS: BASOPHILS 0.6 %; BASOPHILS ABSOLUTE 0.04 10/3/uL (0.0-0.16); EOSINOPHILS 3.5 %; EOSINOPHILS ABSOLUTE 0.24 10/3/uL (0.0-0.53); HEMATOCRIT 25.2 % (40.0-51.0); HEMOGLOBIN 8.4 g/dL (13.6-17.8); IMMATURE GRANULOCYTES 2.9 %; LYMPHOCYTES 11.2 %; LYMPHOCYTES ABSOLUTE 0.77 10/3/uL (0.67-4.30); MANUAL DIFF NO %; MEAN CORPUS HGB CONC 33.3 g/dL (32.0-36.0); MEAN CORPUSCULAR HEMOGLOB 29.2 pg (26.0-34.0); MEAN CORPUSCULAR VOLUME 87.5 fL (80-100); MEAN PLATELET VOLUME 9.3 fL (9.2-13.0); MONOCYTES 14.3 %; MONOCYTES ABSOLUTE 0.98 10/3/uL (0.21-1.20); NEUTROPHILS 67.5 %; NEUTROPHILS ABSOLUTE 4.64 10/3/uL (2.02-8.40); PLATELET COUNT 250 10/3/uL (150-400); RBC DISTRIBUTION WIDTH 14.3 % (12.0-16.0); RED CELL COUNT 2.88 10/6/uL (4.7-6.1); WHITE BLOOD CELLS 6.9 10/3/uL (4.5-10.5)
[2016-11-06 10:58] LABS: PROCALCITONIN 3.67 ng/mL (<0.5)
[2016-11-06 21:31] LABS: POTASSIUM, SERUM 4.1 MMOL/L (3.5-5.3)
[2016-11-07 04:33] LABS: HEMOGLOBIN 8.8 g/dL (13.6-17.8); MEAN CORPUS HGB CONC 32.6 g/dL (32.0-36.0); MEAN CORPUSCULAR HEMOGLOB 29.6 pg (26.0-34.0); MEAN PLATELET VOLUME 9.2 fL (9.2-13.0); PLATELET COUNT 306 10/3/uL (150-400); RBC DISTRIBUTION WIDTH 14.4 % (12.0-16.0); RED CELL COUNT 2.97 10/6/uL (4.7-6.1); WHITE BLOOD CELLS 9.4 10/3/uL (4.5-10.5)
[2016-11-07 04:35] LABS: MANUAL DIFF YES %; MEAN CORPUSCULAR VOLUME 90.9 fL (80-100)
[2016-11-07 04:54] LABS: CALCIUM, SERUM 9.1 MG/DL (8.5-10.4); CHLORIDE, SERUM 98 MMOL/L (96-112); CO2 (CARBON DIOXIDE) 26 MMOL/L (24-34); GFR AFRICAN AMERICAN 66 ML/MIN (>=60); GFR NON AFRICAN AMERICAN 57 ML/MIN (>=60); PHOSPHORUS, SERUM 3.6 MG/DL (2.5-4.5); SODIUM, SERUM 138 MMOL/L (135-148)
[2016-11-07 05:03] LABS: ALBUMIN 3.2 G/DL (3.5-5.0); BUN (BLOOD UREA NITROGEN) 28 MG/DL (6-23); GLUCOSE, SERUM 190 MG/DL (60-99)
[2016-11-07 05:48] LABS: BAND NEUTROPHILS 4 %; EOSINOPHILS 3 %; EOSINOPHILS ABSOLUTE (CALC) 0.28 10/3/uL (0.0-0.53); IMMATURE GRANS ABSOLUTE (CALC) 0.38 10/3/uL (0.0-0.11); LYMPHOCYTES 9 %; LYMPHOCYTES ABSOLUTE (CALC) 0.85 10/3/uL (0.67-4.30); METAMYELOCYTES 3 %; MONOCYTES 10 %; MONOCYTES ABSOLUTE (CALC) 0.94 10/3/uL (0.21-1.20); MYELOCYTES 1 %; NEUTROPHILS ABSOLUTE (CALC) 6.96 10/3/uL (2.02-8.40); NUCLEATED RED BLOOD CELLS 1 /100WBC (0); SEGMENTED NEUTROPHIL (0) 70 %; TOTAL NUCLEATED CELLS 100
[2016-11-07 05:49] LABS: TOXIC GRANULATION SLT
[2016-11-07 05:50] LABS: PLATELET ESTIMATE ADQ (ADEQUATE); TEARDROP SHAPED RBCS OCC (0-2/OIF)
[2016-11-08 04:19] LABS: HEMOGLOBIN 7.5 g/dL (13.6-17.8); MEAN CORPUS HGB CONC 32.5 g/dL (32.0-36.0); MEAN CORPUSCULAR HEMOGLOB 29.8 pg (26.0-34.0); MEAN CORPUSCULAR VOLUME 91.7 fL (80-100); MEAN PLATELET VOLUME 9.1 fL (9.2-13.0); PLATELET COUNT 327 10/3/uL (150-400); RBC DISTRIBUTION WIDTH 14.4 % (12.0-16.0); RED CELL COUNT 2.52 10/6/uL (4.7-6.1); WHITE BLOOD CELLS 10.6 10/3/uL (4.5-10.5)
[2016-11-08 04:20] LABS: HEMATOCRIT 23.1 % (40.0-51.0); MANUAL DIFF YES %
[2016-11-08 04:34] LABS: A/G RATIO 0.7 (0.7-1.9); ALBUMIN 2.9 G/DL (3.5-5.0); CALCIUM, SERUM 8.6 MG/DL (8.5-10.4); CHLORIDE, SERUM 102 MMOL/L (96-112); CO2 (CARBON DIOXIDE) 27 MMOL/L (24-34); CREATININE 1.41 MG/DL (0.70-1.30); GFR AFRICAN AMERICAN 60 ML/MIN (>=60); GFR NON AFRICAN AMERICAN 52 ML/MIN (>=60); GLOBULIN 4.3 G/DL (2.5-4.1); GLUCOSE, SERUM 181 MG/DL (60-99); PHOSPHORUS, SERUM 3.9 MG/DL (2.5-4.5); SGOT(AST) 52 U/L (5-40); SGPT(ALT) 44 U/L (5-65); SODIUM, SERUM 140 MMOL/L (135-148); TOTAL BILIRUBIN 0.3 MG/DL (0-1.2); TOTAL PROTEIN 7.2 G/DL (6.0-8.5)
[2016-11-08 04:35] LABS: ALKALINE PHOSPHATASE 81 U/L (45-117); BUN (BLOOD UREA NITROGEN) 57 MG/DL (6-23)
[2016-11-08 05:12] LABS: PROCALCITONIN 1.96 ng/mL (<0.5)
[2016-11-08 06:03] LABS: BAND NEUTROPHILS 16 %; IMMATURE GRANS ABSOLUTE (CALC) 0.64 10/3/uL (0.0-0.11); LYMPHOCYTES 9 %; LYMPHOCYTES ABSOLUTE (CALC) 0.95 10/3/uL (0.67-4.30); METAMYELOCYTES 6 %; MONOCYTES 7 %; MONOCYTES ABSOLUTE (CALC) 0.74 10/3/uL (0.21-1.20); NEUTROPHILS ABSOLUTE (CALC) 8.27 10/3/uL (2.02-8.40); PLATELET ESTIMATE ADQ (ADEQUATE); RBC MORPHOLOGY NORM (NORMAL); SEGMENTED NEUTROPHIL (0) 62 %; TOTAL NUCLEATED CELLS 100
[2016-11-08 23:02] LABS: MEAN CORPUS HGB CONC 32.5 g/dL (32.0-36.0); MEAN CORPUSCULAR HEMOGLOB 29.4 pg (26.0-34.0); MEAN CORPUSCULAR VOLUME 90.5 fL (80-100); PLATELET COUNT 335 10/3/uL (150-400); RBC DISTRIBUTION WIDTH 14.5 % (12.0-16.0); RED CELL COUNT 2.21 10/6/uL (4.7-6.1); WHITE BLOOD CELLS 11.4 10/3/uL (4.5-10.5)
[2016-11-08 23:08] LABS: HEMOGLOBIN 6.5 g/dL (13.6-17.8)
[2016-11-08 23:11] LABS: CALCIUM, SERUM 8.8 MG/DL (8.5-10.4); CHLORIDE, SERUM 101 MMOL/L (96-112); CO2 (CARBON DIOXIDE) 27 MMOL/L (24-34); CREATININE 1.46 MG/DL (0.70-1.30); GFR AFRICAN AMERICAN 58 ML/MIN (>=60); GFR NON AFRICAN AMERICAN 50 ML/MIN (>=60); GLUCOSE, SERUM 183 MG/DL (60-99); MANUAL DIFF YES %; SODIUM, SERUM 140 MMOL/L (135-148)
[2016-11-08 23:12] LABS: BUN (BLOOD UREA NITROGEN) 70 MG/DL (6-23)
[2016-11-08 23:40] LABS: BAND NEUTROPHILS 4 %; BASOPHILS 1 %; BASOPHILS ABSOLUTE (CALC) 0.11 10/3/uL (0.0-0.16); EOSINOPHILS 4 %; EOSINOPHILS ABSOLUTE (CALC) 0.46 10/3/uL (0.0-0.53); LYMPHOCYTES 9 %; LYMPHOCYTES ABSOLUTE (CALC) 1.03 10/3/uL (0.67-4.30); MONOCYTES 13 %; MONOCYTES ABSOLUTE (CALC) 1.48 10/3/uL (0.21-1.20); NEUTROPHILS ABSOLUTE (CALC) 8.32 10/3/uL (2.02-8.40); SEGMENTED NEUTROPHIL (0) 69 %; TOTAL NUCLEATED CELLS 100
[2016-11-08 23:41] LABS: PLATELET ESTIMATE ADQ (ADEQUATE); POLYCHROMASIA 1+ (2-5/OIF) (0-1/OIF)
[2016-11-09 07:38] LABS: CALCIUM, SERUM 9.1 MG/DL (8.5-10.4); CHLORIDE, SERUM 105 MMOL/L (96-112); CO2 (CARBON DIOXIDE) 23 MMOL/L (24-34); CREATININE 1.29 MG/DL (0.70-1.30); GFR AFRICAN AMERICAN 67 ML/MIN (>=60); GFR NON AFRICAN AMERICAN 58 ML/MIN (>=60); GLUCOSE, SERUM 184 MG/DL (60-99); PHOSPHORUS, SERUM 3.1 MG/DL (2.5-4.5); POTASSIUM, SERUM 3.9 MMOL/L (3.5-5.3); SODIUM, SERUM 140 MMOL/L (135-148)
[2016-11-09 07:39] LABS: BUN (BLOOD UREA NITROGEN) 65 MG/DL (6-23); HEMOGLOBIN 7.3 g/dL (13.6-17.8); MEAN CORPUS HGB CONC 31.7 g/dL (32.0-36.0); MEAN CORPUSCULAR HEMOGLOB 28.1 pg (26.0-34.0); MEAN CORPUSCULAR VOLUME 88.5 fL (80-100); PLATELET COUNT 320 10/3/uL (150-400); RBC DISTRIBUTION WIDTH 15.7 % (12.0-16.0); WHITE BLOOD CELLS 11.7 10/3/uL (4.5-10.5)
[2016-11-09 07:40] LABS: MANUAL DIFF YES %
[2016-11-09 09:10] LABS: BAND NEUTROPHILS 8 %; EOSINOPHILS 7 %; EOSINOPHILS ABSOLUTE (CALC) 0.82 10/3/uL (0.0-0.53); IMMATURE GRANS ABSOLUTE (CALC) 0.82 10/3/uL (0.0-0.11); LYMPHOCYTES 7 %; LYMPHOCYTES ABSOLUTE (CALC) 0.82 10/3/uL (0.67-4.30); METAMYELOCYTES 5 %; MONOCYTES 5 %; MONOCYTES ABSOLUTE (CALC) 0.59 10/3/uL (0.21-1.20); MYELOCYTES 2 %; NEUTROPHILS ABSOLUTE (CALC) 8.66 10/3/uL (2.02-8.40); PLATELET ESTIMATE ADQ (ADEQUATE); SEGMENTED NEUTROPHIL (0) 66 %; TOTAL NUCLEATED CELLS 100
[2016-11-09 09:11] LABS: RBC MORPHOLOGY NORM (NORMAL); TOXIC GRANULATION 1+
[2016-11-09 16:07] LABS: HEMATOCRIT 24.6 % (40.0-51.0); HEMOGLOBIN 7.9 g/dL (13.6-17.8)
[2016-11-09 17:04] LABS: INTERNATIONAL NORMAL RATI 1.2 UNITS (-); PROTIME (NOT ORD) 14.9 SEC (12.0-14.5)
[2016-11-09 17:30] LABS: PARTIAL THROMBO TIME 33.5 SEC (22.5-37.2)
[2016-11-09 22:53] LABS: HEMATOCRIT 23.6 % (40.0-51.0); HEMOGLOBIN 7.8 g/dL (13.6-17.8)
[2016-11-10 03:48] LABS: ALLENS TEST Pos; BE (BASE EXCESS) -0.9 MEQ/L (0 +/- 2.5); CARBOXYHEMOGLOBIN 1.3 % (0-3); HCO3 (ACTUAL BICARBONATE) 22.9 MEQ/L (23-27); HEMOBLOGIN CONTENT 8.5 G/DL (14-18); INSTRUMENT SERIAL # 8083; METHEMOGLOBIN 0.2 % (0-3); MODE CMV; O2 CONTENT 11.4 VOL% (18-24); OPERATOR ID 23712; PCO2 (CO2 TENSION) 34 MMHG (35-45); PO2 (O2 TENSION) 79 MMHG (79-93); SAMPLE Arterial; TIDAL VOLUME 600 ML; pH 7.45 (7.37-7.43)
[2016-11-10 05:45] LABS: HEMATOCRIT 25.1 % (40.0-51.0); HEMOGLOBIN 8.1 g/dL (13.6-17.8); MEAN CORPUS HGB CONC 32.3 g/dL (32.0-36.0); MEAN CORPUSCULAR HEMOGLOB 28.7 pg (26.0-34.0); MEAN PLATELET VOLUME 9.1 fL (9.2-13.0); PLATELET COUNT 331 10/3/uL (150-400); RBC DISTRIBUTION WIDTH 16.2 % (12.0-16.0); RED CELL COUNT 2.82 10/6/uL (4.7-6.1); WHITE BLOOD CELLS 12.9 10/3/uL (4.5-10.5)
[2016-11-10 05:52] LABS: MANUAL DIFF YES %
[2016-11-10 06:03] LABS: A/G RATIO 0.6 (0.7-1.9); ALBUMIN 2.7 G/DL (3.5-5.0); ALKALINE PHOSPHATASE 70 U/L (45-117); CHLORIDE, SERUM 107 MMOL/L (96-112); CO2 (CARBON DIOXIDE) 24 MMOL/L (24-34); CREATININE 1.36 MG/DL (0.70-1.30); GFR AFRICAN AMERICAN 63 ML/MIN (>=60); GFR NON AFRICAN AMERICAN 54 ML/MIN (>=60); GLOBULIN 4.7 G/DL (2.5-4.1); GLUCOSE, SERUM 157 MG/DL (60-99); POTASSIUM, SERUM 3.8 MMOL/L (3.5-5.3); SGOT(AST) 69 U/L (5-40); SGPT(ALT) 68 U/L (5-65); SODIUM, SERUM 143 MMOL/L (135-148); TOTAL BILIRUBIN 0.5 MG/DL (0-1.2); TOTAL PROTEIN 7.4 G/DL (6.0-8.5)
[2016-11-10 06:05] LABS: BUN (BLOOD UREA NITROGEN) 61 MG/DL (6-23)
[2016-11-10 06:12] LABS: PREALBUMIN 22.9 MG/DL (17.0-43.0)
[2016-11-10 06:32] LABS: BAND NEUTROPHILS 8 %; BASOPHILS 1 %; BASOPHILS ABSOLUTE (CALC) 0.13 10/3/uL (0.0-0.16); EOSINOPHILS 2 %; EOSINOPHILS ABSOLUTE (CALC) 0.26 10/3/uL (0.0-0.53); IMMATURE GRANS ABSOLUTE (CALC) 0.65 10/3/uL (0.0-0.11); LYMPHOCYTES 9 %; LYMPHOCYTES ABSOLUTE (CALC) 1.16 10/3/uL (0.67-4.30); METAMYELOCYTES 4 %; MONOCYTES 2 %; MONOCYTES ABSOLUTE (CALC) 0.26 10/3/uL (0.21-1.20); MYELOCYTES 1 %; NEUTROPHILS ABSOLUTE (CALC) 10.45 10/3/uL (2.02-8.40); PLATELET ESTIMATE ADQ (ADEQUATE); POLYCHROMASIA 1+ (2-5/OIF) (0-1/OIF); SEGMENTED NEUTROPHIL (0) 73 %; TOTAL NUCLEATED CELLS 100; TOXIC GRANULATION 1+
[2016-11-10 07:49] LABS: PROCALCITONIN 0.59 ng/mL (<0.5)
[2016-11-10 11:31] LABS: HEMATOCRIT 23.7 % (40.0-51.0); HEMOGLOBIN 7.8 g/dL (13.6-17.8)
[2016-11-10 16:19] LABS: HEMATOCRIT 24.8 % (40.0-51.0); HEMOGLOBIN 8.2 g/dL (13.6-17.8)
[2016-11-10 23:12] LABS: HEMATOCRIT 24.7 % (40.0-51.0)
[2016-11-11 03:56] LABS: ALLENS TEST Pos; BE (BASE EXCESS) -3.1 MEQ/L (0 +/- 2.5); HCO3 (ACTUAL BICARBONATE) 20.3 MEQ/L (23-27); HEMOBLOGIN CONTENT 9.1 G/DL (14-18); INSTRUMENT SERIAL # 8083; METHEMOGLOBIN 0.2 % (0-3); MODE CMV; O2 CONTENT 12.6 VOL% (18-24); OPERATOR ID 17370; PCO2 (CO2 TENSION) 30 MMHG (35-45); PO2 (O2 TENSION) 100 MMHG (79-93); SAMPLE Arterial; TIDAL VOLUME 600 ML; pH 7.45 (7.37-7.43)
[2016-11-11 05:09] LABS: HEMATOCRIT 26.2 % (40.0-51.0); HEMOGLOBIN 8.4 g/dL (13.6-17.8); MEAN CORPUS HGB CONC 32.1 g/dL (32.0-36.0); MEAN CORPUSCULAR HEMOGLOB 28.8 pg (26.0-34.0); MEAN CORPUSCULAR VOLUME 89.7 fL (80-100); MEAN PLATELET VOLUME 8.9 fL (9.2-13.0); PLATELET COUNT 380 10/3/uL (150-400); RBC DISTRIBUTION WIDTH 15.7 % (12.0-16.0); RED CELL COUNT 2.92 10/6/uL (4.7-6.1); WHITE BLOOD CELLS 14.5 10/3/uL (4.5-10.5)
[2016-11-11 05:12] LABS: MANUAL DIFF YES %
[2016-11-11 05:37] LABS: CALCIUM, SERUM 9.4 MG/DL (8.5-10.4); CHLORIDE, SERUM 107 MMOL/L (96-112); CO2 (CARBON DIOXIDE) 23 MMOL/L (24-34); CREATININE 1.24 MG/DL (0.70-1.30); GFR AFRICAN AMERICAN 70 ML/MIN (>=60); GFR NON AFRICAN AMERICAN 61 ML/MIN (>=60); GLUCOSE, SERUM 157 MG/DL (60-99); POTASSIUM, SERUM 3.8 MMOL/L (3.5-5.3); SODIUM, SERUM 142 MMOL/L (135-148)
[2016-11-11 05:38] LABS: BUN (BLOOD UREA NITROGEN) 55 MG/DL (6-23)
[2016-11-11 05:41] LABS: BAND NEUTROPHILS 2 %; BASOPHILS 1 %; BASOPHILS ABSOLUTE (CALC) 0.15 10/3/uL (0.0-0.16); EOSINOPHILS 2 %; EOSINOPHILS ABSOLUTE (CALC) 0.29 10/3/uL (0.0-0.53); IMMATURE GRANS ABSOLUTE (CALC) 0.15 10/3/uL (0.0-0.11); LYMPHOCYTES 14 %; LYMPHOCYTES ABSOLUTE (CALC) 2.03 10/3/uL (0.67-4.30); MONOCYTES 4 %; MONOCYTES ABSOLUTE (CALC) 0.58 10/3/uL (0.21-1.20); MYELOCYTES 1 %; NEUTROPHILS ABSOLUTE (CALC) 11.31 10/3/uL (2.02-8.40); SEGMENTED NEUTROPHIL (0) 76 %; TOTAL NUCLEATED CELLS 100
[2016-11-11 05:42] LABS: PLATELET ESTIMATE ADQ (ADEQUATE); RBC MORPHOLOGY NORM (NORMAL)
[2016-11-11 06:30] LABS: PROCALCITONIN 0.41 ng/mL (<0.5)
[2016-11-11 10:06] LABS: HEMATOCRIT 24.3 % (40.0-51.0); HEMOGLOBIN 7.8 g/dL (13.6-17.8)
[2016-11-11 16:41] LABS: HEMATOCRIT 23.3 % (40.0-51.0); HEMOGLOBIN 7.7 g/dL (13.6-17.8)
[2016-11-11 22:34] LABS: HEMATOCRIT 24.2 % (40.0-51.0); HEMOGLOBIN 7.8 g/dL (13.6-17.8)
[2016-11-12 04:41] LABS: HEMATOCRIT 24.6 % (40.0-51.0); HEMOGLOBIN 7.9 g/dL (13.6-17.8); MEAN CORPUS HGB CONC 32.1 g/dL (32.0-36.0); MEAN CORPUSCULAR HEMOGLOB 29.2 pg (26.0-34.0); MEAN CORPUSCULAR VOLUME 90.8 fL (80-100); PLATELET COUNT 399 10/3/uL (150-400); RBC DISTRIBUTION WIDTH 15.2 % (12.0-16.0); RED CELL COUNT 2.71 10/6/uL (4.7-6.1); WHITE BLOOD CELLS 12.9 10/3/uL (4.5-10.5)
[2016-11-12 04:48] LABS: MANUAL DIFF YES %
[2016-11-12 04:54] LABS: CHLORIDE, SERUM 108 MMOL/L (96-112); CO2 (CARBON DIOXIDE) 24 MMOL/L (24-34); GFR AFRICAN AMERICAN 81 ML/MIN (>=60); GFR NON AFRICAN AMERICAN 70 ML/MIN (>=60); GLUCOSE, SERUM 148 MG/DL (60-99); POTASSIUM, SERUM 4.2 MMOL/L (3.5-5.3); SODIUM, SERUM 145 MMOL/L (135-148)
[2016-11-12 04:56] LABS: BUN (BLOOD UREA NITROGEN) 46 MG/DL (6-23)
[2016-11-12 05:33] LABS: EOSINOPHILS 2 %; EOSINOPHILS ABSOLUTE (CALC) 0.26 10/3/uL (0.0-0.53); IMMATURE GRANS ABSOLUTE (CALC) 0.26 10/3/uL (0.0-0.11); LYMPHOCYTES 8 %; LYMPHOCYTES ABSOLUTE (CALC) 1.03 10/3/uL (0.67-4.30); METAMYELOCYTES 2 %; MONOCYTES 2 %; MONOCYTES ABSOLUTE (CALC) 0.26 10/3/uL (0.21-1.20); NEUTROPHILS ABSOLUTE (CALC) 11.09 10/3/uL (2.02-8.40); PLATELET ESTIMATE ADQ (ADEQUATE); RBC MORPHOLOGY NORM (NORMAL); SEGMENTED NEUTROPHIL (0) 86 %; TOTAL NUCLEATED CELLS 100
[2016-11-12 10:12] LABS: HEMATOCRIT 24.6 % (40.0-51.0); HEMOGLOBIN 7.9 g/dL (13.6-17.8)
[2016-11-12 16:09] LABS: HEMATOCRIT 26.1 % (40.0-51.0)
[2016-11-12 22:20] LABS: HEMATOCRIT 24.7 % (40.0-51.0); HEMOGLOBIN 7.9 g/dL (13.6-17.8)
[2016-11-13 04:16] LABS: BASOPHILS 0.5 %; BASOPHILS ABSOLUTE 0.06 10/3/uL (0.0-0.16); EOSINOPHILS 2.8 %; EOSINOPHILS ABSOLUTE 0.35 10/3/uL (0.0-0.53); HEMATOCRIT 24.9 % (40.0-51.0); HEMOGLOBIN 7.9 g/dL (13.6-17.8); IMMATURE GRANULOCYTES 2.3 %; IMMATURE GRANULOCYTES ABSOLUTE 0.29 10/3/uL (0.0-0.11); LYMPHOCYTES 9.1 %; LYMPHOCYTES ABSOLUTE 1.15 10/3/uL (0.67-4.30); MEAN CORPUS HGB CONC 31.7 g/dL (32.0-36.0); MEAN CORPUSCULAR HEMOGLOB 28.8 pg (26.0-34.0); MEAN CORPUSCULAR VOLUME 90.9 fL (80-100); MEAN PLATELET VOLUME 8.6 fL (9.2-13.0); MONOCYTES 7.5 %; MONOCYTES ABSOLUTE 0.95 10/3/uL (0.21-1.20); NEUTROPHILS 77.8 %; NEUTROPHILS ABSOLUTE 9.82 10/3/uL (2.02-8.40); PLATELET COUNT 397 10/3/uL (150-400); RBC DISTRIBUTION WIDTH 14.6 % (12.0-16.0); RED CELL COUNT 2.74 10/6/uL (4.7-6.1); WHITE BLOOD CELLS 12.6 10/3/uL (4.5-10.5)
[2016-11-13 04:23] LABS: MANUAL DIFF NO %
[2016-11-13 04:26] LABS: CALCIUM, SERUM 9.3 MG/DL (8.5-10.4); CHLORIDE, SERUM 109 MMOL/L (96-112); CO2 (CARBON DIOXIDE) 24 MMOL/L (24-34); GFR AFRICAN AMERICAN 91 ML/MIN (>=60); GFR NON AFRICAN AMERICAN 79 ML/MIN (>=60); GLUCOSE, SERUM 125 MG/DL (60-99); PHOSPHORUS, SERUM 3.5 MG/DL (2.5-4.5); POTASSIUM, SERUM 4.3 MMOL/L (3.5-5.3); SODIUM, SERUM 144 MMOL/L (135-148)
[2016-11-13 04:28] LABS: BUN (BLOOD UREA NITROGEN) 40 MG/DL (6-23)
[2016-11-13 11:26] LABS: HEMATOCRIT 23.5 % (40.0-51.0); HEMOGLOBIN 7.4 g/dL (13.6-17.8)
[2016-11-13 13:42] LABS: ALLENS TEST Pos; BE (BASE EXCESS) -2.7 MEQ/L (0 +/- 2.5); CARBOXYHEMOGLOBIN 0.6 % (0-3); DEVICE NC; HCO3 (ACTUAL BICARBONATE) 21.1 MEQ/L (23-27); HEMOBLOGIN CONTENT 8.6 G/DL (14-18); INSTRUMENT SERIAL # 8083; METHEMOGLOBIN 0.1 % (0-3); O2 CONTENT 12.2 VOL% (18-24); PCO2 (CO2 TENSION) 33 MMHG (35-45); PO2 (O2 TENSION) 132 MMHG (79-93); SAMPLE Arterial; pH 7.43 (7.37-7.43)
[2016-11-14 04:41] LABS: BASOPHILS 0.6 %; BASOPHILS ABSOLUTE 0.06 10/3/uL (0.0-0.16); EOSINOPHILS 3.4 %; EOSINOPHILS ABSOLUTE 0.33 10/3/uL (0.0-0.53); HEMATOCRIT 25.1 % (40.0-51.0); LYMPHOCYTES 12.6 %; LYMPHOCYTES ABSOLUTE 1.24 10/3/uL (0.67-4.30); MEAN CORPUS HGB CONC 31.9 g/dL (32.0-36.0); MEAN CORPUSCULAR HEMOGLOB 28.4 pg (26.0-34.0); MEAN PLATELET VOLUME 8.8 fL (9.2-13.0); MONOCYTES ABSOLUTE 0.59 10/3/uL (0.21-1.20); NEUTROPHILS 75.4 %; PLATELET COUNT 478 10/3/uL (150-400); RBC DISTRIBUTION WIDTH 14.3 % (12.0-16.0); RED CELL COUNT 2.82 10/6/uL (4.7-6.1); WHITE BLOOD CELLS 9.8 10/3/uL (4.5-10.5)
[2016-11-14 04:53] LABS: MANUAL DIFF NO %
[2016-11-14 04:56] LABS: A/G RATIO 0.5 (0.7-1.9); ALBUMIN 2.5 G/DL (3.5-5.0); ALKALINE PHOSPHATASE 72 U/L (45-117); CALCIUM, SERUM 9.4 MG/DL (8.5-10.4); CHLORIDE, SERUM 107 MMOL/L (96-112); CO2 (CARBON DIOXIDE) 23 MMOL/L (24-34); CREATININE 0.95 MG/DL (0.70-1.30); GFR AFRICAN AMERICAN 97 ML/MIN (>=60); GFR NON AFRICAN AMERICAN 84 ML/MIN (>=60); GLOBULIN 4.8 G/DL (2.5-4.1); GLUCOSE, SERUM 139 MG/DL (60-99); PHOSPHORUS, SERUM 2.9 MG/DL (2.5-4.5); POTASSIUM, SERUM 3.7 MMOL/L (3.5-5.3); SGOT(AST) 148 U/L (5-40); SGPT(ALT) 163 U/L (5-65); SODIUM, SERUM 142 MMOL/L (135-148); TOTAL BILIRUBIN 0.4 MG/DL (0-1.2); TOTAL PROTEIN 7.3 G/DL (6.0-8.5)
[2016-11-14 04:58] LABS: BUN (BLOOD UREA NITROGEN) 35 MG/DL (6-23)
[2016-11-15 05:30] LABS: BUN (BLOOD UREA NITROGEN) 35 MG/DL (6-23); CALCIUM, SERUM 9.3 MG/DL (8.5-10.4); CHLORIDE, SERUM 102 MMOL/L (96-112); CO2 (CARBON DIOXIDE) 24 MMOL/L (24-34); CREATININE 1.03 MG/DL (0.70-1.30); GFR AFRICAN AMERICAN 88 ML/MIN (>=60); GFR NON AFRICAN AMERICAN 76 ML/MIN (>=60); GLUCOSE, SERUM 148 MG/DL (60-99); POTASSIUM, SERUM 3.8 MMOL/L (3.5-5.3); SODIUM, SERUM 140 MMOL/L (135-148)
[2016-11-15 05:35] LABS: BASOPHILS ABSOLUTE 0.09 10/3/uL (0.0-0.16); EOSINOPHILS 4.2 %; EOSINOPHILS ABSOLUTE 0.38 10/3/uL (0.0-0.53); HEMOGLOBIN 9.6 g/dL (13.6-17.8); IMMATURE GRANULOCYTES 2.2 %; LYMPHOCYTES ABSOLUTE 1.19 10/3/uL (0.67-4.30); MEAN CORPUS HGB CONC 32.9 g/dL (32.0-36.0); MEAN CORPUSCULAR HEMOGLOB 29.2 pg (26.0-34.0); MEAN CORPUSCULAR VOLUME 88.8 fL (80-100); MEAN PLATELET VOLUME 8.8 fL (9.2-13.0); MONOCYTES 6.8 %; MONOCYTES ABSOLUTE 0.62 10/3/uL (0.21-1.20); NEUTROPHILS 72.8 %; NEUTROPHILS ABSOLUTE 6.65 10/3/uL (2.02-8.40); PLATELET COUNT 556 10/3/uL (150-400); RBC DISTRIBUTION WIDTH 14.1 % (12.0-16.0); RED CELL COUNT 3.29 10/6/uL (4.7-6.1); WHITE BLOOD CELLS 9.1 10/3/uL (4.5-10.5)
[2016-11-15 05:38] LABS: HEMATOCRIT 29.2 % (40.0-51.0); MANUAL DIFF NO %
[2016-11-16 05:37] LABS: BASOPHILS 0.7 %; BASOPHILS ABSOLUTE 0.06 10/3/uL (0.0-0.16); EOSINOPHILS 4.2 %; EOSINOPHILS ABSOLUTE 0.37 10/3/uL (0.0-0.53); HEMATOCRIT 29.8 % (40.0-51.0); HEMOGLOBIN 9.5 g/dL (13.6-17.8); IMMATURE GRANULOCYTES 3.9 %; IMMATURE GRANULOCYTES ABSOLUTE 0.34 10/3/uL (0.0-0.11); LYMPHOCYTES ABSOLUTE 1.41 10/3/uL (0.67-4.30); MEAN CORPUS HGB CONC 31.9 g/dL (32.0-36.0); MEAN CORPUSCULAR HEMOGLOB 28.3 pg (26.0-34.0); MEAN CORPUSCULAR VOLUME 88.7 fL (80-100); MEAN PLATELET VOLUME 8.5 fL (9.2-13.0); MONOCYTES ABSOLUTE 0.53 10/3/uL (0.21-1.20); NEUTROPHILS 69.2 %; NEUTROPHILS ABSOLUTE 6.12 10/3/uL (2.02-8.40); PLATELET COUNT 508 10/3/uL (150-400); RBC DISTRIBUTION WIDTH 14.2 % (12.0-16.0); RED CELL COUNT 3.36 10/6/uL (4.7-6.1); WHITE BLOOD CELLS 8.8 10/3/uL (4.5-10.5)
[2016-11-16 05:38] LABS: MANUAL DIFF NO %
[2016-11-16 05:51] LABS: BUN (BLOOD UREA NITROGEN) 34 MG/DL (6-23); CALCIUM, SERUM 9.2 MG/DL (8.5-10.4); CHLORIDE, SERUM 102 MMOL/L (96-112); CO2 (CARBON DIOXIDE) 26 MMOL/L (24-34); CREATININE 0.96 MG/DL (0.70-1.30); GFR AFRICAN AMERICAN 96 ML/MIN (>=60); GFR NON AFRICAN AMERICAN 83 ML/MIN (>=60); GLUCOSE, SERUM 122 MG/DL (60-99); SODIUM, SERUM 139 MMOL/L (135-148)
[2016-11-17 04:27] LABS: BASOPHILS 0.8 %; BASOPHILS ABSOLUTE 0.07 10/3/uL (0.0-0.16); EOSINOPHILS 5.2 %; EOSINOPHILS ABSOLUTE 0.46 10/3/uL (0.0-0.53); HEMATOCRIT 29.4 % (40.0-51.0); HEMOGLOBIN 9.8 g/dL (13.6-17.8); IMMATURE GRANULOCYTES ABSOLUTE 0.27 10/3/uL (0.0-0.11); LYMPHOCYTES 15.3 %; LYMPHOCYTES ABSOLUTE 1.36 10/3/uL (0.67-4.30); MEAN CORPUS HGB CONC 33.3 g/dL (32.0-36.0); MEAN CORPUSCULAR HEMOGLOB 29.3 pg (26.0-34.0); MEAN PLATELET VOLUME 8.6 fL (9.2-13.0); MONOCYTES 6.4 %; MONOCYTES ABSOLUTE 0.57 10/3/uL (0.21-1.20); NEUTROPHILS 69.3 %; NEUTROPHILS ABSOLUTE 6.17 10/3/uL (2.02-8.40); PLATELET COUNT 505 10/3/uL (150-400); RBC DISTRIBUTION WIDTH 14.2 % (12.0-16.0); RED CELL COUNT 3.34 10/6/uL (4.7-6.1); WHITE BLOOD CELLS 8.9 10/3/uL (4.5-10.5)
[2016-11-17 04:28] LABS: MANUAL DIFF NO %
[2016-11-17 04:47] LABS: A/G RATIO 0.7 (0.7-1.9); ALKALINE PHOSPHATASE 78 U/L (45-117); BUN (BLOOD UREA NITROGEN) 34 MG/DL (6-23); CALCIUM, SERUM 9.1 MG/DL (8.5-10.4); CHLORIDE, SERUM 102 MMOL/L (96-112); CO2 (CARBON DIOXIDE) 27 MMOL/L (24-34); CREATININE 0.86 MG/DL (0.70-1.30); GFR AFRICAN AMERICAN 105 ML/MIN (>=60); GFR NON AFRICAN AMERICAN 91 ML/MIN (>=60); GLOBULIN 4.7 G/DL (2.5-4.1); GLUCOSE, SERUM 107 MG/DL (60-99); PHOSPHORUS, SERUM 3.8 MG/DL (2.5-4.5); POTASSIUM, SERUM 4.1 MMOL/L (3.5-5.3); SGOT(AST) 92 U/L (5-40); SGPT(ALT) 130 U/L (5-65); SODIUM, SERUM 139 MMOL/L (135-148); TOTAL BILIRUBIN 0.4 MG/DL (0-1.2); TOTAL PROTEIN 7.8 G/DL (6.0-8.5)
[2016-11-17 04:50] LABS: PREALBUMIN 29.9 MG/DL (17.0-43.0)
[2016-11-17 04:51] LABS: ALBUMIN 3.1 G/DL (3.5-5.0)
[2016-11-21 03:20] LABS: ALLENS TEST Pos; BE (BASE EXCESS) -0.4 MEQ/L (0 +/- 2.5); DEVICE NRB; HCO3 (ACTUAL BICARBONATE) 22.1 MEQ/L (23-27); HEMOBLOGIN CONTENT 11.3 G/DL (14-18); INSTRUMENT SERIAL # 35151; METHEMOGLOBIN 0.4 % (0-3); O2 CONTENT 15.9 VOL% (18-24); OPERATOR ID 13861; PCO2 (CO2 TENSION) 30 MMHG (35-45); PO2 (O2 TENSION) 135 MMHG (79-93); SAMPLE Arterial; pH 7.49 (7.37-7.43)
[2016-11-21 03:54] LABS: HEMATOCRIT 31.9 % (40.0-51.0); HEMOGLOBIN 10.5 g/dL (13.6-17.8); MANUAL DIFF YES %; MEAN CORPUS HGB CONC 32.9 g/dL (32.0-36.0); MEAN CORPUSCULAR HEMOGLOB 29.1 pg (26.0-34.0); MEAN CORPUSCULAR VOLUME 88.4 fL (80-100); MEAN PLATELET VOLUME 8.9 fL (9.2-13.0); PLATELET COUNT 450 10/3/uL (150-400); RBC DISTRIBUTION WIDTH 14.5 % (12.0-16.0); RED CELL COUNT 3.61 10/6/uL (4.7-6.1); WHITE BLOOD CELLS 19.3 10/3/uL (4.5-10.5)
[2016-11-21 04:09] LABS: ALBUMIN 3.6 G/DL (3.5-5.0); CALCIUM, SERUM 9.2 MG/DL (8.5-10.4); CHLORIDE, SERUM 97 MMOL/L (96-112); CO2 (CARBON DIOXIDE) 27 MMOL/L (24-34); CREATININE 1.08 MG/DL (0.70-1.30); GFR AFRICAN AMERICAN 83 ML/MIN (>=60); GFR NON AFRICAN AMERICAN 72 ML/MIN (>=60); PHOSPHORUS, SERUM 3.3 MG/DL (2.5-4.5); SODIUM, SERUM 137 MMOL/L (135-148)
[2016-11-21 04:18] LABS: BAND NEUTROPHILS 4 %; LYMPHOCYTES 4 %; LYMPHOCYTES ABSOLUTE (CALC) 0.77 10/3/uL (0.67-4.30); MONOCYTES 6 %; MONOCYTES ABSOLUTE (CALC) 1.16 10/3/uL (0.21-1.20); NEUTROPHILS ABSOLUTE (CALC) 17.37 10/3/uL (2.02-8.40); PLATELET ESTIMATE SLT INC (ADEQUATE); SEGMENTED NEUTROPHIL (0) 86 %; TOTAL NUCLEATED CELLS 100
[2016-11-21 04:19] LABS: RBC MORPHOLOGY NORM (NORMAL)
[2016-11-21 04:21] LABS: BUN (BLOOD UREA NITROGEN) 30 MG/DL (6-23); GLUCOSE, SERUM 139 MG/DL (60-99)
[2016-11-21 05:19] LABS: TROPONIN I <0.02 NG/ML (<0.05)
[2016-11-21 05:35] LABS: PROCALCITONIN 0.19 ng/mL (<0.5)
[2016-11-21 08:12] LABS: ASCORBIC ACID (UR NOT ORDER) 40 (NEG); BILIRUBIN, URINE NEGATIVE (NEG); KETONE, URINE NEGATIVE (NEG); LEUKOCYTE ESTERASE(NOT OR NEG (NEG); WBC (NOT ORDERED) (RFLEX) 1 (0-5)
[2016-11-22 08:06] LABS: BASOPHILS 0.2 %; BASOPHILS ABSOLUTE 0.02 10/3/uL (0.0-0.16); EOSINOPHILS 4.1 %; EOSINOPHILS ABSOLUTE 0.38 10/3/uL (0.0-0.53); IMMATURE GRANULOCYTES 0.2 %; IMMATURE GRANULOCYTES ABSOLUTE 0.02 10/3/uL (0.0-0.11); LYMPHOCYTES 7.4 %; LYMPHOCYTES ABSOLUTE 0.69 10/3/uL (0.67-4.30); MEAN CORPUS HGB CONC 32.8 g/dL (32.0-36.0); MEAN CORPUSCULAR HEMOGLOB 29.2 pg (26.0-34.0); MEAN PLATELET VOLUME 8.8 fL (9.2-13.0); MONOCYTES 4.5 %; MONOCYTES ABSOLUTE 0.42 10/3/uL (0.21-1.20); NEUTROPHILS 83.6 %; NEUTROPHILS ABSOLUTE 7.78 10/3/uL (2.02-8.40); RBC DISTRIBUTION WIDTH 14.9 % (12.0-16.0)
[2016-11-22 08:10] LABS: HEMOGLOBIN 8.2 g/dL (13.6-17.8); MANUAL DIFF NO %; PLATELET COUNT 261 10/3/uL (150-400); RED CELL COUNT 2.81 10/6/uL (4.7-6.1); WHITE BLOOD CELLS 9.3 10/3/uL (4.5-10.5)
[2016-11-22 08:20] LABS: CALCIUM, SERUM 8.6 MG/DL (8.5-10.4); CHLORIDE, SERUM 106 MMOL/L (96-112); CO2 (CARBON DIOXIDE) 26 MMOL/L (24-34); CREATININE 0.96 MG/DL (0.70-1.30); GFR AFRICAN AMERICAN 96 ML/MIN (>=60); GFR NON AFRICAN AMERICAN 83 ML/MIN (>=60); GLUCOSE, SERUM 135 MG/DL (60-99); PHOSPHORUS, SERUM 3.1 MG/DL (2.5-4.5); POTASSIUM, SERUM 3.6 MMOL/L (3.5-5.3); SODIUM, SERUM 141 MMOL/L (135-148)
[2016-11-22 08:21] LABS: BUN (BLOOD UREA NITROGEN) 24 MG/DL (6-23)
[2016-11-23 05:00] LABS: BASOPHILS 0.3 %; BASOPHILS ABSOLUTE 0.02 10/3/uL (0.0-0.16); EOSINOPHILS 6.2 %; EOSINOPHILS ABSOLUTE 0.42 10/3/uL (0.0-0.53); HEMATOCRIT 26.6 % (40.0-51.0); HEMOGLOBIN 8.6 g/dL (13.6-17.8); IMMATURE GRANULOCYTES 0.4 %; IMMATURE GRANULOCYTES ABSOLUTE 0.03 10/3/uL (0.0-0.11); LYMPHOCYTES 11.7 %; LYMPHOCYTES ABSOLUTE 0.79 10/3/uL (0.67-4.30); MEAN CORPUS HGB CONC 32.3 g/dL (32.0-36.0); MEAN CORPUSCULAR HEMOGLOB 29.4 pg (26.0-34.0); MEAN CORPUSCULAR VOLUME 90.8 fL (80-100); MEAN PLATELET VOLUME 9.1 fL (9.2-13.0); MONOCYTES 6.7 %; MONOCYTES ABSOLUTE 0.45 10/3/uL (0.21-1.20); NEUTROPHILS 74.7 %; NEUTROPHILS ABSOLUTE 5.05 10/3/uL (2.02-8.40); PLATELET COUNT 276 10/3/uL (150-400); RBC DISTRIBUTION WIDTH 14.8 % (12.0-16.0); RED CELL COUNT 2.93 10/6/uL (4.7-6.1); WHITE BLOOD CELLS 6.8 10/3/uL (4.5-10.5)
[2016-11-23 05:01] LABS: MANUAL DIFF NO %
[2016-11-23 05:16] LABS: CALCIUM, SERUM 8.8 MG/DL (8.5-10.4); CHLORIDE, SERUM 104 MMOL/L (96-112); CO2 (CARBON DIOXIDE) 26 MMOL/L (24-34); CREATININE 0.92 MG/DL (0.70-1.30); GFR AFRICAN AMERICAN 101 ML/MIN (>=60); GFR NON AFRICAN AMERICAN 87 ML/MIN (>=60); GLUCOSE, SERUM 154 MG/DL (60-99); PHOSPHORUS, SERUM 2.9 MG/DL (2.5-4.5); POTASSIUM, SERUM 3.6 MMOL/L (3.5-5.3); SODIUM, SERUM 140 MMOL/L (135-148); VANCOMYCIN TROUGH 15.2 MCG/ML (10.0-20.0)
[2016-11-23 05:17] LABS: ALBUMIN 2.8 G/DL (3.5-5.0); BUN (BLOOD UREA NITROGEN) 18 MG/DL (6-23)
[2016-11-24 06:08] LABS: A/G RATIO 0.7 (0.7-1.9); ALBUMIN 3.2 G/DL (3.5-5.0); ALKALINE PHOSPHATASE 68 U/L (45-117); BUN (BLOOD UREA NITROGEN) 19 MG/DL (6-23); CALCIUM, SERUM 9.5 MG/DL (8.5-10.4); CHLORIDE, SERUM 106 MMOL/L (96-112); CO2 (CARBON DIOXIDE) 25 MMOL/L (24-34); CREATININE 0.94 MG/DL (0.70-1.30); GFR AFRICAN AMERICAN 98 ML/MIN (>=60); GFR NON AFRICAN AMERICAN 85 ML/MIN (>=60); GLOBULIN 4.3 G/DL (2.5-4.1); GLUCOSE, SERUM 156 MG/DL (60-99); PHOSPHORUS, SERUM 3.5 MG/DL (2.5-4.5); PREALBUMIN 29.3 MG/DL (17.0-43.0); SGOT(AST) 48 U/L (5-40); SGPT(ALT) 48 U/L (5-65); SODIUM, SERUM 141 MMOL/L (135-148); TOTAL BILIRUBIN 0.4 MG/DL (0-1.2); TOTAL PROTEIN 7.5 G/DL (6.0-8.5)
[2016-11-24 07:47] LABS: VANCOMYCIN TROUGH 16.7 MCG/ML (10.0-20.0)
[2016-11-26 07:05] LABS: BASOPHILS 0.8 %; BASOPHILS ABSOLUTE 0.05 10/3/uL (0.0-0.16); EOSINOPHILS 6.8 %; EOSINOPHILS ABSOLUTE 0.41 10/3/uL (0.0-0.53); HEMATOCRIT 27.7 % (40.0-51.0); HEMOGLOBIN 8.9 g/dL (13.6-17.8); IMMATURE GRANULOCYTES 1.7 %; LYMPHOCYTES ABSOLUTE 1.21 10/3/uL (0.67-4.30); MEAN CORPUS HGB CONC 32.1 g/dL (32.0-36.0); MEAN CORPUSCULAR HEMOGLOB 28.8 pg (26.0-34.0); MEAN CORPUSCULAR VOLUME 89.6 fL (80-100); MEAN PLATELET VOLUME 8.9 fL (9.2-13.0); MONOCYTES 5.6 %; MONOCYTES ABSOLUTE 0.34 10/3/uL (0.21-1.20); NEUTROPHILS 65.1 %; NEUTROPHILS ABSOLUTE 3.95 10/3/uL (2.02-8.40); PLATELET COUNT 256 10/3/uL (150-400); RED CELL COUNT 3.09 10/6/uL (4.7-6.1); WHITE BLOOD CELLS 6.1 10/3/uL (4.5-10.5)
[2016-11-26 07:06] LABS: MANUAL DIFF NO %
[2016-11-26 07:17] LABS: BUN (BLOOD UREA NITROGEN) 22 MG/DL (6-23); CALCIUM, SERUM 8.8 MG/DL (8.5-10.4); CHLORIDE, SERUM 100 MMOL/L (96-112); CO2 (CARBON DIOXIDE) 25 MMOL/L (24-34); CREATININE 0.96 MG/DL (0.70-1.30); GFR AFRICAN AMERICAN 96 ML/MIN (>=60); GFR NON AFRICAN AMERICAN 83 ML/MIN (>=60); GLUCOSE, SERUM 150 MG/DL (60-99); POTASSIUM, SERUM 3.6 MMOL/L (3.5-5.3); SODIUM, SERUM 137 MMOL/L (135-148)
[2016-11-27 06:58] LABS: BUN (BLOOD UREA NITROGEN) 25 MG/DL (6-23); CALCIUM, SERUM 9.3 MG/DL (8.5-10.4); CHLORIDE, SERUM 104 MMOL/L (96-112); CO2 (CARBON DIOXIDE) 26 MMOL/L (24-34); CREATININE 0.93 MG/DL (0.70-1.30); GFR AFRICAN AMERICAN 99 ML/MIN (>=60); GFR NON AFRICAN AMERICAN 86 ML/MIN (>=60); GLUCOSE, SERUM 139 MG/DL (60-99); POTASSIUM, SERUM 3.8 MMOL/L (3.5-5.3); SODIUM, SERUM 139 MMOL/L (135-148)
== END 2016-11-27 18:29 | DRG 64 ==
LOC: 1SO 17:55 → MIC 11-02 05:11 → 2SO 11-17 20:00 → CCU 11-21 02:54 → 2SO 11-24 14:42
PROVIDERS: Hospitalist; Internal Medicine; Internal Medicine Critical Care Medicine; Internal Medicine Pulmonary Disease; Nurse Practitioner Family; Radiology Radiation Oncology; Specialist
PROC: 5A1955Z Respiratory Ventilation, Greater than 96 Consecutive Hours (ICD-10-PCS; principal; 2016-10-28)
PROC: 0BH17EZ Insertion of Endotracheal Airway into Trachea, Via Natural or Artificial Opening (ICD-10-PCS; 2016-10-28)
PROC: 0DH63UZ Insertion of Feeding Device into Stomach, Percutaneous Approach (ICD-10-PCS; 2016-10-28)
PROC: 3E0G76Z Introduction of Nutritional Substance into Upper GI, Via Natural or Artificial Opening (ICD-10-PCS; 2016-10-31)
PROC: 02HV33Z Insertion of Infusion Device into Superior Vena Cava, Percutaneous Approach (ICD-10-PCS; 2016-11-02)
PROC: 4A02X4A Measurement of Cardiac Electrical Activity, Guidance, External Approach (ICD-10-PCS; 2016-11-02)
PROC: 30233N1 Transfusion of Nonautologous Red Blood Cells into Peripheral Vein, Percutaneous Approach (ICD-10-PCS; 2016-11-09)
DX: I63.233 Cerebral infarction due to unspecified occlusion or stenosis of bilateral carotid arteries (principal); J96.01 Acute respiratory failure with hypoxia; J69.0 Pneumonitis due to inhalation of food and vomit; A41.9 Sepsis, unspecified organism; J15.9 Unspecified bacterial pneumonia; G20 Parkinson's disease; R13.12 Dysphagia, oropharyngeal phase; E87.70 Fluid overload, unspecified; J44.9 Chronic obstructive pulmonary disease, unspecified; E86.0 Dehydration; G81.91 Hemiplegia, unspecified affecting right dominant side; I10 Essential (primary) hypertension; B37.9 Candidiasis, unspecified; E87.6 Hypokalemia; E03.9 Hypothyroidism, unspecified; E78.00 Pure hypercholesterolemia, unspecified; F43.10 Post-traumatic stress disorder, unspecified; L40.9 Psoriasis, unspecified; K21.9 Gastro-esophageal reflux disease without esophagitis; F41.9 Anxiety disorder, unspecified; I65.01 Occlusion and stenosis of right vertebral artery; K59.00 Constipation, unspecified; Z87.891 Personal history of nicotine dependence; Z85.818 Personal history of malignant neoplasm of other sites of lip, oral cavity, and pharynx; Z79.899 Other long term (current) drug therapy; Z80.8 Family history of malignant neoplasm of other organs or systems; Z82.49 Family history of ischemic heart disease and other diseases of the circulatory system; Z80.1 Family history of malignant neoplasm of trachea, bronchus and lung; Z92.3 Personal history of irradiation; Z92.21 Personal history of antineoplastic chemotherapy; Z98.890 Other specified postprocedural states
CPT/HCPCS: 31720; 36415; 36569; 36600; 49440; 49450; 71010; 71250; 71275; 74000; 74230; 80048; 80053; 80061; 80069; 80202; 81001; 82330; 82533; 82803; 82805; 82947; 82962; 83036; 83605; 83735; 83880; 84100; 84132; 84134; 84145; 84295; 84443; 84484; 85014; 85018; 85025; 85610; 85730; 86850; 86900; 86901; 86920; 87040; 87070; 87077; 87186; 87205; 87641; 92611-GN; 93005; 93880; 94002; 94003; 94640; 94660; 97110-GO; 97110-GP; 97116-GP; 97162-GP; 97164-GP; 97166-GO; 97168-GO; 97530-GO; 97530-GP; A9270-GY; C1751; C1769; C1894; C8929; C9113; G8987-CK-GO; G8988-CJ-GO; J0330; J0692; J1170; J1940; J2405; J2543; J2550; J2800; J3010; J3370; P9016; P9047; Q9957; Q9967